=== PATIENT | female | born 1965 | race Caucasian/White ===

== ENCOUNTER 2017-07-07 05:07 | Inpatient (IN) | payer OTHER ==
[2017-07-06 09:16] VITALS: BMI 30.2
[~2017-07-07 05:07] MED LIST: BUPIVACAINE HCL/PF (5 MG/ML) 30 ML VIAL IJ ONE
[2017-07-07] MEDS ORDERED: THROMBIN (BOVINE) 20,000 UNIT VIAL TP ONE (07:37)
[2017-07-07] MEDS ORDERED: GENTAMICIN SO4 80 MG/2 ML VIAL ONE (07:37)
[2017-07-07] MEDS ORDERED: LIDOCAINE 1%/EPI 1:100000 (20 ML MULTI DOSE VIAL) ONE (07:37)
[2017-07-07] MEDS ORDERED: BUPIVACAINE HCL/PF 0.5% (5MG/ML) 10 ML VIAL ONE (07:38)
[2017-07-07] MEDS ORDERED: THROMBIN (BOVINE) 5,000 UNIT VIAL TP ONE (07:38)
[2017-07-07] MEDS ORDERED: VANCOMYCIN 1,000 MG VIAL (RESTRICTED TO ID ONLY) ONE ×2 (07:40→10:26)
--- NOTE | 2017-07-07 07:40 | HP ---
History & Physical Update - History History: No Change - Physical Physical: No Change - Assessment Assessment: No Change - Plan Plan: No Change (of note patient states she does not have DM, takes metformin likely for PCOS. NO changes in health/history since visit with Chris on 07/02/17 )
[2017-07-07 08:58] LABS: BASO % 1.2 % (0-2.0); EOS % 2.3 % (0-4.5); HEMATOCRIT 40.5 % (32.4-45.2); HEMOGLOBIN 12.8 GM/dL (10.7-15.3); LYMPH % 19.4 % (8-40); MCH 25.3 pg (25.7-33.7); MCHC 31.6 g/dl (32.0-36.0); MEAN PLT VOLUME 8.4 fl (7.5-11.1); MONO % 6.7 % (3.8-10.2); NEUT % 70.4 % (42.8-82.8); PLATELET COUNT 223 K/MM3 (134-434); RBC 5.07 M/mm3 (3.60-5.2); RDW 15.4 % (11.6-15.6); WHITE BLOOD COUNT 12.4 K/mm3 (4.0-10.0)
[2017-07-07] MEDS ORDERED: fentaNYL CITRATE 250 MCG/5 ML VIAL ONE (09:46)
[2017-07-07] MEDS ORDERED: MIDAZOLAM HCL 2 MG/2 ML SINGLE DOSE VIAL ONE (09:47)
[2017-07-07] MEDS ORDERED: ROCURONIUM BROMIDE 50 MG/5 ML VIAL ONE ×2 (09:47→11:39)
[2017-07-07] MEDS ORDERED: PROPOFOL 20 ML ONE ×2 (09:47→15:12)
[2017-07-07] MEDS ORDERED: LIDOCAINE HCL/PF 2% SDV 5ML VIAL ONE (09:48)
[2017-07-07] MEDS ORDERED: DEXAMETHASONE SOD PHOSPHATE 4 MG/1 ML VIAL IVPUSH ONE (09:56)
[2017-07-07] MEDS ORDERED: ONDANSETRON 4 MG/2 ML VIAL IVPUSH PRN (09:56)
[2017-07-07] MEDS ORDERED: LACTATED RINGERS SOLUTION 1,000 ML IV SCH (10:00)
[2017-07-07] MEDS ORDERED: SODIUM CHLORIDE 0.9% P/F 10 ML VIAL IJ ONE ×2 (10:25→10:45)
[2017-07-07] MEDS ORDERED: ceFAZolin SODIUM 1 GM VIAL ONE ×4 (10:26→21:08)
[2017-07-07] MEDS ORDERED: VANCOMYCIN 1,000 MG VIAL (RESTRICTED TO ID ONLY) IVPB ONE (10:27)
[2017-07-07] MEDS ORDERED: DESFLURANE GAS 240 ML BOTTLE IH ONE (10:36)
[2017-07-07] MEDS ORDERED: ceFAZolin SODIUM 1 GM VIAL IVPB ONE ×3 (10:44→14:45)
[2017-07-07] MEDS ORDERED: ePHEDrine SULFATE 50 MG/1 ML AMPULE ONE (10:45)
[2017-07-07] MEDS ORDERED: LIDOCAINE 1%/EPI 1:100000 (50 ML MULTI DOSE VIAL) INF ONE (10:48)
[2017-07-07] MEDS ORDERED: ONDANSETRON 4 MG/2 ML VIAL ONE ×2 (11:09→14:56)
[2017-07-07] MEDS ORDERED: DEXAMETHASONE SOD PHOSPHATE 4 MG/1 ML VIAL ONE (11:09)
[2017-07-07] MEDS ORDERED: BUPIVACAINE HCL/PF (5 MG/ML) 30 ML VIAL IJ ONE (14:45)
[2017-07-07] MEDS ORDERED: NEOSTIGMINE METHYLSULFATE 0.5 MG/ML - 10 ML MDV ONE (14:56)
[2017-07-07] MEDS ORDERED: GLYCOPYRROLATE 0.2 MG/1 ML VIAL ONE (14:56)
[2017-07-07] MEDS ORDERED: HYDROmorphone *PCA* 10MG/50ML DISP.SYRIN PCA ONE ×2 (15:46→16:00)
[2017-07-07] MEDS ORDERED: ACETAMINOPHEN 1000 MG/100 ML VIAL (NON FORMULARY) IVPB PRN (16:50)
[2017-07-07] MEDS ORDERED: ACETAMINOPHEN INJECTION 100 ML IVPB ONE (16:55)
[2017-07-07] MEDS ORDERED: diphenhydrAMINE HCL 25 MG CAPSULE (FP) PO PRN (17:07)
[2017-07-07] MEDS ORDERED: ALBUTEROL SO4 18 GM HFA INHALER IH PRN ×2 (17:08→17:21)
[2017-07-07] MEDS ORDERED: ACETAMINOPHEN 1000 MG/100 ML VIAL (NON FORMULARY) IVPB ONE (17:24)
--- NOTE | 2017-07-07 17:26 | OP ---
Operative Note - Note: Operative Date: 07/07/17 Pre-Operative Diagnosis: lumbar stenosis, radiculopathy and instability s/p lumbar fusion Operation: exploration of L4-L5 fusion with hardware removal and L2-L5 decompression (reoperative at L4-L5) with transpedicular approaches for interbody cage and arthrodeis and L2-L5 later fusion with pedicle screws. Post-Operative Diagnosis: Same as Pre-op Surgeon: Rich Garcia Concrete Rubber: Mary Ann Marshall Anesthesiologist/TANKAGE SUPERVISOR: Rich Prater Anesthesia: General Estimated Blood Loss (mls): 750 Drains & Tubes with Location: j/p right paravetebral lumbar spine Drains, Volume Out (mls): 150 (rojas) Fluid Volume Replaced (mls): 2,000 Operative Report Dictated: Yes
--- NOTE | 2017-07-07 17:28 | SURG ---
Surgery Bar Pilot Note Bar Pilot: Mary Ann Marshall PA-C Date of Service: 07/07/17 Diagnosis: lumbar stenosis, DDD, instability I was present for the entirety of the operative procedure. For further detail, please refer to operative report. Visit type - Case Type Case Type: Scheduled - Emergency Emergency Visit: No - New patient This patient is new to me today: Yes Date on this admission: 07/07/17
[2017-07-07] MEDS: HYDROmorphone *PCA* 10MG/50ML DISP.SYRIN PCA SCH (18:18)
[2017-07-07] MEDS: ACETAMINOPHEN 325 MG TABLET (FP) PO SCH ×2 (18:18→23:04)
[2017-07-07] MEDS: LACTATED RINGERS SOLUTION 1,000 ML IV SCH (18:18)
[2017-07-07] MEDS ORDERED: DEXTROSE 5%-WATER - 50 ML IVPB ONE (21:08)
[2017-07-07] MEDS ORDERED: INSULIN (NOVOLOG) ASPART 100 UNITS/ML 10ML VIAL ONE (21:19)
[2017-07-07] MEDS: ROSUVASTATIN CA 10 MG TABLET (FP) PO SCH (21:43)
[2017-07-07] MEDS: FERROUS SO4 325 MG TABLET (FP) PO SCH (21:44)
[2017-07-07] MEDS ORDERED: ROSUVASTATIN CA 10 MG TABLET (FP) PO SCH (22:00)
[2017-07-07] MEDS: CEFAZOLIN 1 GM in DEXTROSE 5%-WATER - 50 ML IVPB SCH (22:01)
[2017-07-08] MEDS ORDERED: ceFAZolin SODIUM 1 GM VIAL ONE ×3 (01:09→17:32)
[2017-07-08] MEDS ORDERED: DEXTROSE 5%-WATER - 50 ML IVPB ONE ×3 (01:10→17:33)
[2017-07-08] MEDS: CEFAZOLIN 1 GM in DEXTROSE 5%-WATER - 50 ML IVPB SCH ×3 (01:39→18:03)
[2017-07-08] MEDS: LACTATED RINGERS SOLUTION 1,000 ML IV SCH ×2 (05:34→17:19)
[2017-07-08] MEDS: HEPARIN NA (PORCINE) 5,000 UNITS/ML 1ML VIAL SQ SCH ×3 (05:35→21:36)
[2017-07-08] MEDS: ACETAMINOPHEN 325 MG TABLET (FP) PO SCH ×4 (06:33→23:08)
[2017-07-08] MEDS: metFORMIN HCL 500 MG TABLET (FP) PO SCH ×2 (06:33→18:03)
[2017-07-08 07:58] LABS: HEMATOCRIT 26.7 % (32.4-45.2); HEMOGLOBIN 8.7 GM/dL (10.7-15.3); MCH 26.4 pg (25.7-33.7); MCHC 32.7 g/dl (32.0-36.0); MEAN CELL VOLUME 80.8 fl (80-96); MEAN PLT VOLUME 8.4 fl (7.5-11.1); PLATELET COUNT 193 K/MM3 (134-434); RDW 15.8 % (11.6-15.6)
[2017-07-08 08:23] LABS: ANION GAP 5 (8-16); BLOOD UREA NITROGEN 15 mg/dL (7-18); CALCIUM 7.9 mg/dL (8.5-10.1); CHLORIDE 105 mmol/L (98-107); CO2 30 mmol/L (21-32); CREATININE 0.8 mg/dL (0.55-1.02); GLUCOSE,RANDOM 102 mg/dL (74-106); POTASSIUM 4.4 mmol/L (3.5-5.1); SODIUM 140 mmol/L (136-145)
--- NOTE | 2017-07-08 08:45 | CONSULT ---
Consult - History of Present Illness History of Present Illness: 51 y.o. woman POD#1 s/p lumbar hardware removal/fusion - Past Medical History Cardio/Vascular: Yes: HTN, Hyperlipdemia Pulmonary: Yes: Asthma, COPD. No: O2 Dependent ...LMP Comment: hysterectomy Endocrine: Yes: Diabetes Mellitus, Hypothyroidism - Past Surgical History Past Surgical History: Yes: Cholecystectomy - Alcohol/Substance Use Hx Alcohol Use: No - Smoking History Smoking history: Current every day smoker Have you smoked in the past 12 months: Yes Aproximately how many cigarettes per day: 6 - Social History History of Recent Travel: No Home Medications - Allergies Allergies/Adverse Reactions: Allergies Allergy/AdvReac Type Severity Reaction Status Date / Time No Known Allergies Allergy Verified 07/07/17 06:47 - Home Medications Home Medications: Ambulatory Orders Levothyroxine [Synthroid -] 88 mcg PO DAILY 06/18/14 metFORMIN HCL [Glucophage] 500 mg PO BID 06/18/14 Albuterol Sulfate Inhaler - [Ventolin HFA Inhaler -] 1 - 2 inh PO PRN PRN Ascorbic Acid [Vitamin C] 500 mg PO BID 07/06/17 Budesonide/Formeterol Fumarate [SYMBICORT 160/4.5mcg -] 2 inh IH DAILY 07/06/17 Cephalexin [Keflex] 500 mg PO BID 07/06/17 Ferrous Sulfate 325 mg PO BID 07/06/17 Folic Acid 1 mg PO DAILY 07/06/17 Liraglutide [Victoza -] 1.8 mg SQ DAILY@0700 07/06/17 Naproxen Sodium [Aleve] 220 mg PO PRN PRN 07/06/17 Rosuvastatin [Crestor -] 5 mg PO HS 07/06/17 Review of Systems - Review of Systems Cardiovascular: reports: Shortness of Breath. denies: Chest Pain Respiratory: reports: Cough, Wheezing Gastrointestinal: denies: Abdominal Pain Physical Exam Vital Signs: Vital Signs Temperature 98.9 F 07/08/17 07:00 Pulse Rate 87 07/08/17 07:00 Respiratory Rate 20 07/08/17 07:00 Blood Pressure 108/69 07/08/17 07:00 O2 Sat by Pulse Oximetry (%) 97 07/07/17 21:00 Cardiovascular: Yes: Regular Rate and Rhythm Respiratory: Yes: Rhonchi, Wheezes Gastrointestinal: Yes: Normal Bowel Sounds, Soft Labs: CBC, BMP 07/08/17 06:15 07/08/17 06:15 Problem List - Problems (1) Post-laminectomy syndrome Assessment/Plan: - PER NS -PAIN CONTROL Code(s): M96.1 - POSTLAMINECTOMY SYNDROME, NOT ELSEWHERE CLASSIFIED (2) Diabetes Assessment/Plan: -BGM -SAME MEDS Code(s): E11.9 - TYPE 2 DIABETES MELLITUS WITHOUT COMPLICATIONS Qualifiers: Diabetes mellitus type: type 2 Diabetes mellitus complication status: without complication (3) Hypothyroid Assessment/Plan: -SYNTHROID Code(s): E03.9 - HYPOTHYROIDISM, UNSPECIFIED (4) Leukocytosis Assessment/Plan: -CHRONIC -MONITOR Code(s): D72.829 - ELEVATED WHITE BLOOD CELL COUNT, UNSPECIFIED (5) COPD (chronic obstructive pulmonary disease) Assessment/Plan: -NEBS -PULM Code(s): J44.9 - CHRONIC OBSTRUCTIVE PULMONARY DISEASE, UNSPECIFIED
--- NOTE | 2017-07-08 10:02 | PN ---
Progress Note (short form) - Note Progress Note: Anesthesiology Post-op/Pain Service 51 y.o. woman POD#1 s/p lumbar hardware removal/fusion under GA. Pt. is awake and alert in NAD. She admits to pain and is using the OUTSIDE SALES ACCOUNT REPRESENTATIVE regularly. No n/v. No ON issues per RN. VSS. 51 y.o. s/p lumbar hardware removal/fusion wit post-op OUTSIDE SALES ACCOUNT REPRESENTATIVE and stable post- operative course. Continue OUTSIDE SALES ACCOUNT REPRESENTATIVE for now. I have encouraged incentive spirometry as well.
[2017-07-08] MEDS: HYDROmorphone *PCA* 10MG/50ML DISP.SYRIN PCA SCH (11:05)
[2017-07-08] MEDS: FERROUS SO4 325 MG TABLET (FP) PO SCH (11:06)
[2017-07-08] MEDS: FOLIC ACID 1 MG TABLET (FP) PO SCH (11:06)
[2017-07-08] MEDS: LEVOTHYROXINE NA 88 MCG TABLET (FP) PO SCH (11:07)
[2017-07-08] MEDS: ALBUTEROL SO4 2.5/IPRATROPIUM 0.5 INH SOL 3 ML VIAL.NEB. NEB SCH ×3 (12:55→20:35)
[2017-07-08] MEDS: ONDANSETRON 4 MG/2 ML VIAL IVPUSH PRN (13:05)
--- NOTE | 2017-07-08 13:51 | PN ---
Progress Note (short form) - Note Progress Note: PULMONARY CONSULTATION DICTATED 07/08/17 IMP ASTHMA STABLE S/P LUMBAR FUSION AND HARDWARE REMOVAL HTN HLD HYPOTHYROID ANEMIA SMOKER PLAN CONTINUE SYMBICORT INHALED BRONCHODILATORS PRN DVT PROPHYLAXIS ANALGESICS INCENTIVE SPIROMETER PFTS OUTPATIENT SMOKING CESSATION COUNSELED CHEST CT OUTPATIENT MONITOR H+H DR KENDALL Problem List - Problems (1) Asthma Code(s): J45.909 - UNSPECIFIED ASTHMA, UNCOMPLICATED (2) Post-laminectomy syndrome Code(s): M96.1 - POSTLAMINECTOMY SYNDROME, NOT ELSEWHERE CLASSIFIED (3) Anemia Code(s): D64.9 - ANEMIA, UNSPECIFIED Qualifiers: Anemia type: unspecified anemia type (4) Hypothyroid Code(s): E03.9 - HYPOTHYROIDISM, UNSPECIFIED (5) Tobacco abuse Code(s): Z72.0 - TOBACCO USE (6) Tobacco abuse counseling Code(s): Z71.6 - TOBACCO ABUSE COUNSELING (7) Tobacco abuse Code(s): Z72.0 - TOBACCO USE (8) Tobacco abuse counseling Code(s): Z71.6 - TOBACCO ABUSE COUNSELING
--- NOTE | 2017-07-08 14:25 | CONS ---
DATE OF CONSULTATION: 07/08/2017 REFERRING PHYSICIAN: Xiomara Perez MD The patient is a 51-year-old white female with a past medical history of asthma, hypothyroidism, history of cholecystectomy, history of tobacco use (smoked cigarettes a day), currently still smoking, in [facility] for lumbar hardware removal and fusion. Patient is postop day 1 status post procedure. Patient has history of asthma, currently maintained on Symbicort as well as albuterol p.r.n. She denies any history of respiratory failure in the past, ventilatory support or any hospitalizations for asthma. She denies any chronic cough or hemoptysis. Denies any chest tightness. Denies any history of occupational exposure to chemicals or fumes. There is no history of recent travel. PAST MEDICAL HISTORY: Again includes asthma, hypothyroidism, hypertension, hyperlipidemia. REVIEW OF SYSTEMS: Positive back pain. No shortness of breath, no chest pain, no palpitations, no cough, no hemoptysis, no bronchospasm. MEDICATIONS: Prior to admission include Synthroid, Glucophage, albuterol, Symbicort, Keflex, Feosol, ferrous sulfate, Naproxen and Crestor. PHYSICAL EXAMINATION: General: The patient is a well-developed, well-nourished female, awake, alert, in no acute distress. Vital signs: She is afebrile. Blood pressure is 94/50, respiratory rate is 20. HEENT: Normocephalic atraumatic. Neck: Supple. Heart: Regular. S1, S2. Chest: Clear. Abdomen: Soft. Bowel sounds positive. Extremities: No cyanosis or edema. LABORATORIES: WBC is 16, hemoglobin 8.7, hematocrit 26.7. BUN 15, creatinine 0.8. Chest x-ray is recent from May 2015: Previous fusion procedure, clear lungs, no acute pathology. IMPRESSION: 1. Asthma, clinically stable, not in acute exacerbation. 2. Status post L4-L5 fusion and hardware removal as well as L2-L5 decompression, re-operative at L4-L5. 3. Hypertension. 4. Hyperlipidemia. 5. Smoker. PLAN: Inhaled bronchodilators. Symbicort 160/4.5 two puffs b.i.d., inhaled bronchodilators p.r.n. Incentive spirometer. Continue DVT prophylaxis. CRICKET KENDALL M.D. TOM/[id number]
[2017-07-08] MEDS: LIRAGLUTIDE 0.6 MG/0.1 ML PEN.INJCTR SQ SCH ×2 (14:31→15:16)
[2017-07-08] MEDS: BUDESONIDE/FORMETEROL FUMARATE 160/4.5 mcg INHALER IH SCH (14:32)
[2017-07-08] MEDS: ROSUVASTATIN CA 10 MG TABLET (FP) PO SCH (21:36)
[2017-07-08] MEDS ORDERED: IBUPROFEN 800 MG/8 ML IJ IVPB PRN (22:11)
[2017-07-08] MEDS ORDERED: IBUPROFEN 800 MG/8 ML IJ IVPB ONE (22:11)
--- NOTE | 2017-07-08 22:19 | PN ---
Progress Note (short form) - Note Progress Note: Anesthesiologist note, Called by RN , pat does not want to use narcotics. C/o nausea. requesting alternative medication. Encourage to use Zofran prn as prescribed. Will add Caldolor prn in addition to existing tylenol order.Will follow up in the morning.
[2017-07-08] MEDS: PROMETHAZINE HCL 25 MG/1 ML VIAL IVPB PRN (22:37)
[2017-07-09] MEDS ORDERED: ceFAZolin SODIUM 1 GM VIAL ONE ×3 (01:41→16:51)
[2017-07-09] MEDS ORDERED: DEXTROSE 5%-WATER - 50 ML IVPB ONE ×3 (01:42→16:51)
[2017-07-09] MEDS: CEFAZOLIN 1 GM in DEXTROSE 5%-WATER - 50 ML IVPB SCH ×4 (02:26→19:49)
[2017-07-09] MEDS: LACTATED RINGERS SOLUTION 1,000 ML IV SCH (02:26)
[2017-07-09] MEDS: ACETAMINOPHEN 325 MG TABLET (FP) PO SCH (05:58)
[2017-07-09] MEDS: PROMETHAZINE HCL 25 MG/1 ML VIAL IVPB PRN (06:03)
[2017-07-09] MEDS: metFORMIN HCL 500 MG TABLET (FP) PO SCH ×2 (06:06→18:28)
[2017-07-09] MEDS: HEPARIN NA (PORCINE) 5,000 UNITS/ML 1ML VIAL SQ SCH ×3 (06:07→22:45)
[2017-07-09] MEDS: LEVOTHYROXINE NA 88 MCG TABLET (FP) PO SCH (06:58)
[2017-07-09] MEDS: LIRAGLUTIDE 0.6 MG/0.1 ML PEN.INJCTR SQ SCH (06:59)
[2017-07-09] MEDS: ALBUTEROL SO4 2.5/IPRATROPIUM 0.5 INH SOL 3 ML VIAL.NEB. NEB SCH ×4 (07:28→19:20)
[2017-07-09 07:47] LABS: BASO % 0.5 % (0-2.0); EOS % 1.2 % (0-4.5); HEMATOCRIT 23.4 % (32.4-45.2); HEMOGLOBIN 7.6 GM/dL (10.7-15.3); LYMPH % 13.7 % (8-40); MCH 26.3 pg (25.7-33.7); MCHC 32.4 g/dl (32.0-36.0); MEAN CELL VOLUME 81.2 fl (80-96); MEAN PLT VOLUME 8.8 fl (7.5-11.1); NEUT % 76.6 % (42.8-82.8); PLATELET COUNT 165 K/MM3 (134-434); RBC 2.88 M/mm3 (3.60-5.2); RDW 15.8 % (11.6-15.6); WHITE BLOOD COUNT 14.9 K/mm3 (4.0-10.0)
[2017-07-09 08:00] LABS: CHLORIDE 105 mmol/L (98-107); POTASSIUM 3.9 mmol/L (3.5-5.1); SODIUM 141 mmol/L (136-145)
[2017-07-09 08:15] LABS: ALBUMIN 2.7 g/dl (3.4-5.0); ALK PHOS 72 U/L (45-117); ANION GAP 6 (8-16); BILIRUBIN,TOTAL 0.5 mg/dL (0.2-1.0); BLOOD UREA NITROGEN 10 mg/dL (7-18); CALCIUM 7.9 mg/dL (8.5-10.1); CO2 30 mmol/L (21-32); CREATININE 0.7 mg/dL (0.55-1.02); GLUCOSE,RANDOM 110 mg/dL (74-106); SGOT/AST 42 U/L (15-37); SGPT/ALT 70 U/L (12-78); TOT PROT 4.9 g/dl (6.4-8.2)
--- NOTE | 2017-07-09 10:20 | PN ---
Progress Note (short form) - Note Progress Note: OOB to chair on RA. No CP or SOB. Asthma seems stable. About 1500 on IS. Intake & Output 07/06/17 07/07/17 07/08/17 07/09/17 23:59 23:59 23:59 23:59 Intake Total 2400 1075 Output Total 1495 2355 350 Balance 905 -1280 -350 Weight 155 lb Last Vital Signs Temp Pulse Resp BP Pulse Ox 99.8 F H 93 H 18 123/80 97 07/09/17 06:00 07/09/17 06:00 07/09/17 06:00 07/09/17 06:00 07/07/17 21:00 Active Medications Acetaminophen (Tylenol -) 650 mg PO Q6HPO [facility] Last Admin: 07/09/17 05:58 Dose: 650 mg Albuterol Sulfate (Ventolin Hfa Inhaler -) 2 puff IH Q4H PRN PRN Reason: ASTHMA Albuterol Sulfate (Ventolin Hfa Inhaler -) 1 puff IH Q4H PRN PRN Reason: ASTHMA Albuterol/Ipratropium (Duoneb -) 1 amp NEB RQID [facility] Last Admin: 07/09/17 07:28 Dose: 1 amp Budesonide/Formoterol Fumarate (Symbicort 160/4.5mcg -) 2 puff IH DAILY [facility] Last Admin: 07/08/17 14:32 Dose: 2 puff Diphenhydramine HCl (Benadryl Injection -) 12.5 mg IVPUSH ONCE PRN PRN Reason: FOR ITCHING Last Admin: 07/08/17 23:07 Dose: 12.5 mg Diphenhydramine HCl (Benadryl -) 25 mg PO Q6H PRN PRN Reason: FOR ITCHING Fentanyl (Sublimaze Injection -) 50 mcg IVPUSH [id number] PRN PRN Reason: PAIN-PACU ORDER X 4 DOSES ONLY Ferrous Sulfate (Feosol -) 325 mg PO DAILY [facility] Folic Acid (Folic Acid -) 1 mg PO DAILY [facility] Last Admin: 07/08/17 11:06 Dose: 1 mg Heparin Sodium (Porcine) (Heparin -) 5,000 unit SQ TID [facility] Last Admin: 07/09/17 06:07 Dose: 5,000 unit Hydromorphone HCl (Dilaudid Unix Systems Administrator -) 10 mg ACTIVE DIRECTORY ARCHITECT ACTIVE DIRECTORY ARCHITECT DANIELLE PRN Reason: Protocol Stop: 07/14/17 09:56 Last Admin: 07/08/17 11:05 Dose: Not Given Lactated Ringer's (Lactated Ringers Solution) 1,000 mls @ 125 mls/hr IV ASDIR [facility] Last Admin: 07/09/17 02:26 Dose: 125 mls/hr Cefazolin Sodium 1 gm/ (Dextrose) 50 mls @ 100 mls/hr IVPB Q8H-IV [facility] Last Admin: 07/09/17 02:26 Dose: 100 mls/hr Ibuprofen (Caldolor Injection -) 800 mg IVPB Q8H PRN PRN Reason: FEVER Last Admin: 07/09/17 06:05 Dose: 800 mg Levothyroxine Sodium (Synthroid -) 88 mcg PO DAILY@0700 [facility] Last Admin: 07/09/17 06:58 Dose: 88 mcg Liraglutide (Victoza -) 1.8 mg SQ DAILY@0700 [facility] Last Admin: 07/09/17 06:59 Dose: Not Given Metformin HCl (Glucophage -) 500 mg PO BIDAC [facility] Last Admin: 07/09/17 06:06 Dose: 500 mg Ondansetron HCl (Zofran Injection) 4 mg IVPUSH Q6H PRN PRN Reason: NAUSEA AND/OR VOMITING Last Admin: 07/08/17 13:05 Dose: 4 mg Promethazine HCl (Phenergan Injection -) 12.5 mg IVPB Q6H PRN PRN Reason: NAUSEA AND/OR VOMITING Last Admin: 07/09/17 06:03 Dose: 12.5 mg Rosuvastatin Calcium (Crestor -) 5 mg PO HS [facility] Last Admin: 07/08/17 21:36 Dose: 5 mg Gen: NAD Cardiovascular: Yes: Regular Rate and Rhythm Respiratory: Yes: Clear, No Wheezes Gastrointestinal: Yes: Normal Bowel Sounds, Soft Neuro: Non-focal Laboratory Results - last 24 hr 07/09/17 07/09/17 07/09/17 06:15 06:15 06:15 WBC 14.9 H RBC 2.88 L Hgb 7.6 L D Hct 23.4 L MCV 81.2 MCH 26.3 MCHC 32.4 RDW 15.8 H Plt Count 165 MPV 8.8 Neutrophils % 76.6 Lymphocytes % 13.7 D Monocytes % 8.0 Eosinophils % 1.2 Basophils % 0.5 Sodium 141 Potassium 3.9 Chloride 105 Carbon Dioxide 30 Anion Gap 6 L BUN 10 Creatinine 0.7 Creat Clearance w eGFR > 60 Random Glucose 110 H Hemoglobin A1c % 5.3 Calcium 7.9 L Total Bilirubin 0.5 D AST 42 H ALT 70 Alkaline Phosphatase 72 Total Protein 4.9 L Albumin 2.7 L Problem List - Problems (1) Asthma Code(s): J45.909 - UNSPECIFIED ASTHMA, UNCOMPLICATED (2) Post-laminectomy syndrome Code(s): M96.1 - POSTLAMINECTOMY SYNDROME, NOT ELSEWHERE CLASSIFIED (3) Anemia Code(s): D64.9 - ANEMIA, UNSPECIFIED Qualifiers: Anemia type: unspecified anemia type (4) Hypothyroid Code(s): E03.9 - HYPOTHYROIDISM, UNSPECIFIED (5) Tobacco abuse Code(s): Z72.0 - TOBACCO USE (6) Tobacco abuse counseling Code(s): Z71.6 - TOBACCO ABUSE COUNSELING (7) Tobacco abuse Code(s): Z72.0 - TOBACCO USE (8) Tobacco abuse counseling Code(s): Z71.6 - TOBACCO ABUSE COUNSELING IMP ASTHMA STABLE S/P LUMBAR FUSION AND HARDWARE REMOVAL HTN HLD HYPOTHYROID ANEMIA SMOKER PLAN SYMBICORT INHALED BRONCHODILATORS PRN DVT PROPHYLAXIS ANALGESICS INCENTIVE SPIROMETER PFTS OUTPATIENT SMOKING CESSATION COUNSELED WILL NEED CHEST CT FOLLOW AN OUTPATIENT: (?) ILD Dr Knight
[2017-07-09] MEDS ORDERED: ACETAMINOPHEN 325 MG TABLET (FP) PO PRN ×2 (10:47→11:00)
[2017-07-09] MEDS: FOLIC ACID 1 MG TABLET (FP) PO SCH (10:54)
[2017-07-09] MEDS: FERROUS SO4 325 MG TABLET (FP) PO SCH (10:54)
[2017-07-09] MEDS: HYDROmorphone *PCA* 10MG/50ML DISP.SYRIN PCA SCH (10:55)
--- NOTE | 2017-07-09 10:57 | PN ---
Progress Note, Physician Chief Complaint: patient doesnot want LINE PREP COOK h/h noted will repeat - Current Medication List Current Medications: Active Medications Acetaminophen (Tylenol -) 650 mg PO Q6HPO PRN PRN Reason: PAIN OR FEVER Albuterol Sulfate (Ventolin Hfa Inhaler -) 2 puff IH Q4H PRN PRN Reason: ASTHMA Albuterol Sulfate (Ventolin Hfa Inhaler -) 1 puff IH Q4H PRN PRN Reason: ASTHMA Albuterol/Ipratropium (Duoneb -) 1 amp NEB RQID [facility] Last Admin: 07/09/17 07:28 Dose: 1 amp Budesonide/Formoterol Fumarate (Symbicort 160/4.5mcg -) 2 puff IH DAILY [facility] Last Admin: 07/08/17 14:32 Dose: 2 puff Diphenhydramine HCl (Benadryl Injection -) 12.5 mg IVPUSH ONCE PRN PRN Reason: FOR ITCHING Last Admin: 07/08/17 23:07 Dose: 12.5 mg Diphenhydramine HCl (Benadryl -) 25 mg PO Q6H PRN PRN Reason: FOR ITCHING Ferrous Sulfate (Feosol -) 325 mg PO DAILY [facility] Folic Acid (Folic Acid -) 1 mg PO DAILY [facility] Last Admin: 07/08/17 11:06 Dose: 1 mg Heparin Sodium (Porcine) (Heparin -) 5,000 unit SQ TID [facility] Last Admin: 07/09/17 06:07 Dose: 5,000 unit Cefazolin Sodium 1 gm/ (Dextrose) 50 mls @ 100 mls/hr IVPB Q8H-IV [facility] Last Admin: 07/09/17 02:26 Dose: 100 mls/hr Levothyroxine Sodium (Synthroid -) 88 mcg PO DAILY@0700 [facility] Last Admin: 07/09/17 06:58 Dose: 88 mcg Liraglutide (Victoza -) 1.8 mg SQ DAILY@0700 [facility] Last Admin: 07/09/17 06:59 Dose: Not Given Metformin HCl (Glucophage -) 500 mg PO BIDAC [facility] Last Admin: 07/09/17 06:06 Dose: 500 mg Ondansetron HCl (Zofran Injection) 4 mg IVPUSH Q6H PRN PRN Reason: NAUSEA AND/OR VOMITING Last Admin: 07/08/17 13:05 Dose: 4 mg Promethazine HCl (Phenergan Injection -) 12.5 mg IVPB Q6H PRN PRN Reason: NAUSEA AND/OR VOMITING Last Admin: 07/09/17 06:03 Dose: 12.5 mg Rosuvastatin Calcium (Crestor -) 5 mg PO HS [facility] Last Admin: 07/08/17 21:36 Dose: 5 mg Tramadol HCl (Ultram -) 50 mg PO Q8H PRN PRN Reason: PAIN LEVEL 7 - 10 - Objective Vital Signs: Vital Signs Temperature 99.8 F H 07/09/17 06:00 Pulse Rate 93 H 07/09/17 06:00 Respiratory Rate 18 07/09/17 06:00 Blood Pressure 123/80 07/09/17 06:00 O2 Sat by Pulse Oximetry (%) 97 07/07/17 21:00 Constitutional: Yes: Calm Neck: Yes: Trachea Midline Cardiovascular: Yes: Regular Rate and Rhythm, S1, S2 Respiratory: Yes: CTA Bilaterally Gastrointestinal: Yes: Normal Bowel Sounds, Soft Edema: No Labs: CBC, BMP 07/09/17 06:15 07/09/17 06:15 Problem List - Problems (1) Post-laminectomy syndrome Assessment/Plan: Procedure: exploration of L4-L5 fusion with hardware removal and L2-L5 decompression (reoperative at L4-L5) with transpedicular approaches for interbody cage and arthrodeis and L2-L5 later fusion with pedicle screws. not using road conductor pump will stop motrin and try tramadol with tylenol back brace dvt ppx Code(s): M96.1 - POSTLAMINECTOMY SYNDROME, NOT ELSEWHERE CLASSIFIED (2) Acute anemia Assessment/Plan: s/p back surgery stop ivf- maybe dilutional recheck cbc again if still < 8 then will give one unit prbc iron panel Code(s): D64.9 - ANEMIA, UNSPECIFIED (3) Hypothyroid Assessment/Plan: synthroid tsh Code(s): E03.9 - HYPOTHYROIDISM, UNSPECIFIED (4) Asthma Assessment/Plan: outpatient PFT and FU of chest CT ?? ILD smoking cessation symbicort Code(s): J45.909 - UNSPECIFIED ASTHMA, UNCOMPLICATED (5) Diabetes Assessment/Plan: same meds Code(s): E11.9 - TYPE 2 DIABETES MELLITUS WITHOUT COMPLICATIONS Qualifiers: Diabetes mellitus type: type 2 Diabetes mellitus complication status: without complication
[2017-07-09] MEDS: BUDESONIDE/FORMETEROL FUMARATE 160/4.5 mcg INHALER IH SCH (11:14)
[2017-07-09 11:34] LABS: BASO % 0.4 % (0-2.0); EOS % 2.2 % (0-4.5); HEMATOCRIT 22.7 % (32.4-45.2); HEMOGLOBIN 7.4 GM/dL (10.7-15.3); LYMPH % 15.9 % (8-40); MCH 26.3 pg (25.7-33.7); MCHC 32.4 g/dl (32.0-36.0); MEAN CELL VOLUME 81.1 fl (80-96); MEAN PLT VOLUME 8.4 fl (7.5-11.1); MONO % 7.3 % (3.8-10.2); NEUT % 74.2 % (42.8-82.8); PLATELET COUNT 174 K/MM3 (134-434); RDW 15.8 % (11.6-15.6); WHITE BLOOD COUNT 14.7 K/mm3 (4.0-10.0)
[2017-07-09] MEDS: ONDANSETRON 4 MG/2 ML VIAL IVPUSH PRN (12:18)
--- NOTE | 2017-07-09 13:21 | PN ---
Progress Note (short form) - Note Progress Note: POD #2 - s/p L2-5 removal of hardware/fusion under GA with PUMP HOUSE TECHNICIAN for postop pain management. VSS. Pt. doing well, sitting up comfortably in chair. PUMP HOUSE TECHNICIAN discontinued earlier today. Good pain control currently. Pain meds as per sx. Reconsult if needed.
[2017-07-09] MEDS: traMADol HCL 50 MG TABLET PO PRN ×2 (15:11→22:44)
--- NOTE | 2017-07-09 16:42 | PROC ---
Procedure Note Procedure: J/P drain pulled form right paravetebral lumbar spine with tip fully intact, the drain site was clean and dry and a pressure dressing was applied. The patient tolerated the procedure well. Her incision at the midline is c/d/i with marycarmen insitu no evidence tracking erythema, collection or d/c. surrounding tissue intact. Clean dressing applied
[2017-07-09] MEDS: ACETAMINOPHEN 325 MG TABLET (FP) PO PRN ×2 (18:30→22:43)
[2017-07-09] MEDS: ROSUVASTATIN CA 10 MG TABLET (FP) PO SCH (22:45)
[2017-07-10] MEDS ORDERED: ceFAZolin SODIUM 1 GM VIAL ONE ×2 (00:32→11:44)
[2017-07-10] MEDS ORDERED: DEXTROSE 5%-WATER - 50 ML IVPB ONE ×2 (00:32→11:44)
[2017-07-10] MEDS: CEFAZOLIN 1 GM in DEXTROSE 5%-WATER - 50 ML IVPB SCH ×2 (05:25→11:48)
[2017-07-10 06:06] LABS: SERUM IRON SATURATION 7 % (15-55); TOTAL IRON BINDING CAPACITY 218 ug/dL (250-450); UIBC 203 ug/dL (131-425)
[2017-07-10] MEDS: metFORMIN HCL 500 MG TABLET (FP) PO SCH ×2 (06:06→17:53)
[2017-07-10] MEDS: HEPARIN NA (PORCINE) 5,000 UNITS/ML 1ML VIAL SQ SCH ×3 (06:06→21:50)
[2017-07-10] MEDS: ACETAMINOPHEN 325 MG TABLET (FP) PO PRN ×2 (06:07→17:53)
[2017-07-10] MEDS: traMADol HCL 50 MG TABLET PO PRN ×2 (06:07→22:33)
[2017-07-10] MEDS: LEVOTHYROXINE NA 88 MCG TABLET (FP) PO SCH (06:09)
[2017-07-10] MEDS: ALBUTEROL SO4 2.5/IPRATROPIUM 0.5 INH SOL 3 ML VIAL.NEB. NEB SCH ×4 (07:35→20:55)
[2017-07-10] MEDS: LIRAGLUTIDE 0.6 MG/0.1 ML PEN.INJCTR SQ SCH (07:45)
--- NOTE | 2017-07-10 09:08 | PN ---
Progress Note, Physician - Current Medication List Current Medications: Active Medications Acetaminophen (Tylenol -) 650 mg PO Q6H PRN PRN Reason: FEVER Last Admin: 07/10/17 06:07 Dose: 650 mg Acetaminophen (Tylenol -) 650 mg PO Q6HPO PRN PRN Reason: PAIN LEVEL 4 - 6 Albuterol Sulfate (Ventolin Hfa Inhaler -) 2 puff IH Q4H PRN PRN Reason: ASTHMA Albuterol Sulfate (Ventolin Hfa Inhaler -) 1 puff IH Q4H PRN PRN Reason: ASTHMA Albuterol/Ipratropium (Duoneb -) 1 amp NEB RQID [facility] Last Admin: 07/10/17 07:35 Dose: 1 amp Budesonide/Formoterol Fumarate (Symbicort 160/4.5mcg -) 2 puff IH DAILY [facility] Last Admin: 07/09/17 11:14 Dose: 2 puff Diphenhydramine HCl (Benadryl Injection -) 12.5 mg IVPUSH ONCE PRN PRN Reason: FOR ITCHING Last Admin: 07/08/17 23:07 Dose: 12.5 mg Diphenhydramine HCl (Benadryl -) 25 mg PO Q6H PRN PRN Reason: FOR ITCHING Last Admin: 07/09/17 22:44 Dose: 25 mg Ferrous Sulfate (Feosol -) 325 mg PO DAILY [facility] Last Admin: 07/09/17 10:54 Dose: 325 mg Folic Acid (Folic Acid -) 1 mg PO DAILY [facility] Last Admin: 07/09/17 10:54 Dose: 1 mg Heparin Sodium (Porcine) (Heparin -) 5,000 unit SQ TID [facility] Last Admin: 07/10/17 06:06 Dose: 5,000 unit Cefazolin Sodium 1 gm/ (Dextrose) 50 mls @ 100 mls/hr IVPB Q8H-IV [facility] Last Admin: 07/10/17 05:25 Dose: Not Given Levothyroxine Sodium (Synthroid -) 88 mcg PO DAILY@0700 [facility] Last Admin: 07/10/17 06:09 Dose: 88 mcg Liraglutide (Victoza -) 1.8 mg SQ DAILY@0700 [facility] Last Admin: 07/10/17 07:45 Dose: Not Given Metformin HCl (Glucophage -) 500 mg PO BIDAC [facility] Last Admin: 07/10/17 06:06 Dose: 500 mg Ondansetron HCl (Zofran Injection) 4 mg IVPUSH Q6H PRN PRN Reason: NAUSEA AND/OR VOMITING Last Admin: 07/09/17 12:18 Dose: 4 mg Promethazine HCl (Phenergan Injection -) 12.5 mg IVPB Q6H PRN PRN Reason: NAUSEA AND/OR VOMITING Last Admin: 07/09/17 06:03 Dose: 12.5 mg Rosuvastatin Calcium (Crestor -) 5 mg PO HS [facility] Last Admin: 07/09/17 22:45 Dose: 5 mg Tramadol HCl (Ultram -) 50 mg PO Q8H PRN PRN Reason: PAIN LEVEL 7 - 10 Last Admin: 07/10/17 06:07 Dose: 50 mg - Objective Vital Signs: Vital Signs Temperature 98 F 07/10/17 06:00 Pulse Rate 92 H 07/10/17 06:00 Respiratory Rate 20 07/10/17 06:00 Blood Pressure 116/72 07/10/17 06:00 O2 Sat by Pulse Oximetry (%) 97 07/07/17 21:00 Cardiovascular: Yes: S1, S2 Respiratory: Yes: Rhonchi Gastrointestinal: Yes: Normal Bowel Sounds, Soft Edema: No Wound/Incision: Yes: Other (rt le--abrasion) Labs: CBC, BMP 07/09/17 11:25 07/09/17 06:15 Problem List - Problems (1) Post-laminectomy syndrome Code(s): M96.1 - POSTLAMINECTOMY SYNDROME, NOT ELSEWHERE CLASSIFIED (2) Diabetes Code(s): E11.9 - TYPE 2 DIABETES MELLITUS WITHOUT COMPLICATIONS Qualifiers: Diabetes mellitus type: type 2 Diabetes mellitus complication status: without complication (3) Hypothyroid Code(s): E03.9 - HYPOTHYROIDISM, UNSPECIFIED (4) Leukocytosis Code(s): D72.829 - ELEVATED WHITE BLOOD CELL COUNT, UNSPECIFIED (5) COPD (chronic obstructive pulmonary disease) Code(s): J44.9 - CHRONIC OBSTRUCTIVE PULMONARY DISEASE, UNSPECIFIED Assessment/Plan - Problems (1) Post-laminectomy syndrome Assessment/Plan: Procedure: exploration of L4-L5 fusion with hardware removal and L2-L5 decompression (reoperative at L4-L5) with transpedicular approaches for interbody cage and arthrodeis and L2-L5 later fusion with pedicle screws. not using card mounter pump off motrin and on tramadol with tylenol back brace dvt ppx Code(s): M96.1 - POSTLAMINECTOMY SYNDROME, NOT ELSEWHERE CLASSIFIED (2) Acute anemia Assessment/Plan: s/p back surgery stop ivf- rpt low recheck cbc again if still < 8 then will give one unit prbc iron panel Code(s): D64.9 - ANEMIA, UNSPECIFIED (3) Hypothyroid Assessment/Plan: synthroid tsh Code(s): E03.9 - HYPOTHYROIDISM, UNSPECIFIED (4) Asthma Assessment/Plan: outpatient PFT and FU of chest CT ?? ILD smoking cessation symbicort Code(s): J45.909 - UNSPECIFIED ASTHMA, UNCOMPLICATED (5) Diabetes Assessment/Plan: same meds Code(s): E11.9 - TYPE 2 DIABETES MELLITUS WITHOUT COMPLICATIONS Qualifiers: Diabetes mellitus type: type 2 Diabetes mellitus complication status: without complication (6) Leukocytosis Assessment/Plan: -chronic--rising -follow -id consult (7) LE Abrasion Assessment/Plan: -bacitracin
--- NOTE | 2017-07-10 09:17 | PN ---
Progress Note (short form) - Note Progress Note: PULMONARY WANTS TO GO HOME DENIES SOB/COUGH/WHEEZE VSS/AFEBRILE ANICTERIC CHEST CLEAR S1S2 BS+ NO EDEMA LABS/MEDS/NOTES/IMAGES REVIEWED IMP ASTHMA STABLE S/P LUMBAR FUSION AND HARDWARE REMOVAL HTN HLD HYPOTHYROID ANEMIA SMOKER PLAN CONTINUE SYMBICORT INHALED BRONCHODILATORS PRN DVT PROPHYLAXIS ANALGESICS INCENTIVE SPIROMETER PFTS OUTPATIENT SMOKING CESSATION COUNSELED CHEST CT OUTPATIENT MONITOR H+H NO OBJECTION TO CONTINUING CARE AN OUTPATIENT. Nathaly SMITH MD
[2017-07-10 09:28] LABS: BASO % 0.3 % (0-2.0); EOS % 1.9 % (0-4.5); HEMATOCRIT 22.7 % (32.4-45.2); HEMOGLOBIN 7.4 GM/dL (10.7-15.3); LYMPH % 13.1 % (8-40); MCH 26.2 pg (25.7-33.7); MCHC 32.5 g/dl (32.0-36.0); MEAN CELL VOLUME 80.5 fl (80-96); MEAN PLT VOLUME 8.4 fl (7.5-11.1); MONO % 6.9 % (3.8-10.2); NEUT % 77.8 % (42.8-82.8); PLATELET COUNT 196 K/MM3 (134-434); RBC 2.82 M/mm3 (3.60-5.2); RDW 15.8 % (11.6-15.6); WHITE BLOOD COUNT 16.8 K/mm3 (4.0-10.0)
[2017-07-10] MEDS ORDERED: BACITRACIN 15 GM TUBE TOPICAL OINTMENT TP SCH (10:00)
[2017-07-10] MEDS: FERROUS SO4 325 MG TABLET (FP) PO SCH (10:31)
[2017-07-10] MEDS: FOLIC ACID 1 MG TABLET (FP) PO SCH (10:31)
[2017-07-10] MEDS: BUDESONIDE/FORMETEROL FUMARATE 160/4.5 mcg INHALER IH SCH (10:32)
--- NOTE | 2017-07-10 13:26 | PN ---
Progress Note (short form) - Note Progress Note: ID Full note dictated Post op temp but temp down now still on post op Cefazolin Selected Entries 07/10/17 06:00 Temperature 98 F Pulse Rate 92 H Respiratory 20 Rate Blood Pressure 116/[address] Boateng drain out clean wound Laboratory Tests 07/09/17 07/09/17 07/10/17 06:15 11:25 08:45 WBC 16.8 H RBC 2.82 L Hct 22.7 L Plt Count 196 BUN 10 Creatinine 0.7 Iron 15 L TIBC 218 L Assessment Day 2 post op spinal surgery Post op fever Looks well Leukocytosis chronic has seen Dr Brooks in past Anemia Plan STOP CEFAZOLIN TRANSFUSE PRBC DISCHARGE Isra ALMENDAREZ Problem List - Problems (1) Status post laminectomy with spinal fusion Code(s): Z98.1 - ARTHRODESIS STATUS (2) Postoperative fever Code(s): R50.82 - POSTPROCEDURAL FEVER (3) Leukocytosis Code(s): D72.829 - ELEVATED WHITE BLOOD CELL COUNT, UNSPECIFIED
--- NOTE | 2017-07-10 14:08 | CONS ---
DATE OF CONSULTATION: DATE OF DICTATION: 07/10/2017 HISTORY OF PRESENT ILLNESS: This is a 51-year-old female who I am asked to see postop spinal surgery for evaluation of fever and antibiotic management. The patient was electively admitted now for spinal surgery with hardware removal and fusion laminectomy. She is a known hypertensive with asthma, COPD, hyperlipidemia, O2 dependent and still continues to smoke. She is also diabetic and has a history of hypothyroidism and a prior cholecystectomy. She was admitted on July 07 and on that day underwent surgery with Dr. Laguerre. This included exploration of L4-L5 fusion with hardware removal, L2-L5 decompression and a transpedicular approach for interbody cage and arthrodesis and L2-L5 fusion with pedicle screws. The patient has been seen postoperatively by the pulmonary service because of her history of oxygen-dependent COPD. She is now day 3 postoperative and on the 1st postoperative day was noted to have temperature to 101.7. She has been afebrile since then and is apparently currently feeling well. She denies any cough, shortness of breath, abdominal pain or urinary complaints. She is fully ambulatory, dressed and states she is ready to go home. CURRENT MEDICATIONS: Include Symbicort, heparin, Ventolin, Duo-Neb, Glucophage, Crestor, Victoza, iron, Ultram, folic acid. ALLERGIES: None known. SOCIAL HISTORY: HIV status negative. Positive long-term smoker. No history of substance abuse. FAMILY HISTORY: Noncontributory. REVIEW OF SYSTEMS:Respiratory: No cough, shortness of breath. Cardiac: No chest pain, palpitations, syncope. Gastrointestinal: No abdominal pain, nausea, vomiting, diarrhea. Genitourinary: No dysuria, hematuria, urinary frequency. PHYSICAL EXAMINATION:General: Revealed a [id number] woman in no acute distress. Vital Signs: Temperature was 98, pulse 92, blood pressure 116/72, respirations 20. Neck: Supple. Lungs: Clear to P & A. Heart: S1, S2, regular rhythm without audible murmur. Abdomen: Soft, nontender without hepatosplenomegaly. Extremities: No clubbing, cyanosis or edema. LABORATORY DATA: The white count is 16.8, hemoglobin 7.4, hematocrit 22.7, platelets of 196. BUN 10, creatinine 0.7. Liver enzymes within normal limits. ASSESSMENT: A 51-year-old female day 3 postoperative extensive spinal surgery. Postoperative fever has resolved. She is still on cefazolin now day 3 of treatment. She has a leukocytosis, but according to the patient this has been chronic and she has been seen by Dr. Brooks in the past for evaluation. She is unaware of any diagnosis of myeloproliferative disorder. At this point she looks well and as per Surgery her spinal incision looks clean with no erythema, drainage and the drain has been removed. RECOMMENDATIONS: I would observe her off of antibiotics. The patient states she is scheduled to get a blood transfusion prior to discharge and from the ID standpoint nothing further to do at this time. MAXIMILIAN THORPE M.D. ERIC/[id number]
[2017-07-10] MEDS: BACITRACIN 15 GM TUBE TOPICAL OINTMENT TP SCH (21:49)
[2017-07-10] MEDS: ROSUVASTATIN CA 10 MG TABLET (FP) PO SCH (21:50)
[2017-07-11] MEDS: ACETAMINOPHEN 325 MG TABLET (FP) PO PRN ×2 (01:21→22:09)
[2017-07-11] MEDS ORDERED: PT OWN MED DRAWER 7, Y5N ONE ×2 (05:53→09:17)
[2017-07-11] MEDS: metFORMIN HCL 500 MG TABLET (FP) PO SCH ×2 (06:16→16:40)
[2017-07-11] MEDS: LEVOTHYROXINE NA 88 MCG TABLET (FP) PO SCH (06:16)
[2017-07-11] MEDS: LIRAGLUTIDE 0.6 MG/0.1 ML PEN.INJCTR SQ SCH (06:21)
[2017-07-11] MEDS: HEPARIN NA (PORCINE) 5,000 UNITS/ML 1ML VIAL SQ SCH ×3 (06:24→21:32)
[2017-07-11] MEDS: ALBUTEROL SO4 2.5/IPRATROPIUM 0.5 INH SOL 3 ML VIAL.NEB. NEB SCH ×4 (07:44→20:15)
--- NOTE | 2017-07-11 09:08 | PN ---
Progress Note, Physician History of Present Illness: 51 y.o. woman POD#1 s/p lumbar hardware removal/fusion - Current Medication List Current Medications: Active Medications Acetaminophen (Tylenol -) 650 mg PO Q6H PRN PRN Reason: FEVER Last Admin: 07/11/17 01:21 Dose: 650 mg Acetaminophen (Tylenol -) 650 mg PO Q6HPO PRN PRN Reason: PAIN LEVEL 4 - 6 Albuterol Sulfate (Ventolin Hfa Inhaler -) 2 puff IH Q4H PRN PRN Reason: ASTHMA Albuterol Sulfate (Ventolin Hfa Inhaler -) 1 puff IH Q4H PRN PRN Reason: ASTHMA Albuterol/Ipratropium (Duoneb -) 1 amp NEB RQID [facility] Last Admin: 07/11/17 07:44 Dose: 1 amp Bacitracin (Bacitracin -) 1 applic TP BID [facility] Last Admin: 07/10/17 21:49 Dose: 1 applic Budesonide/Formoterol Fumarate (Symbicort 160/4.5mcg -) 2 puff IH DAILY [facility] Last Admin: 07/10/17 10:32 Dose: 2 puff Diphenhydramine HCl (Benadryl Injection -) 12.5 mg IVPUSH ONCE PRN PRN Reason: FOR ITCHING Last Admin: 07/08/17 23:07 Dose: 12.5 mg Diphenhydramine HCl (Benadryl -) 25 mg PO Q6H PRN PRN Reason: FOR ITCHING Last Admin: 07/09/17 22:44 Dose: 25 mg Ferrous Sulfate (Feosol -) 325 mg PO DAILY [facility] Last Admin: 07/10/17 10:31 Dose: 325 mg Folic Acid (Folic Acid -) 1 mg PO DAILY [facility] Last Admin: 07/10/17 10:31 Dose: 1 mg Heparin Sodium (Porcine) (Heparin -) 5,000 unit SQ TID [facility] Last Admin: 07/11/17 06:24 Dose: 5,000 unit Levothyroxine Sodium (Synthroid -) 88 mcg PO DAILY@0700 [facility] Last Admin: 07/11/17 06:16 Dose: 88 mcg Liraglutide (Victoza -) 1.8 mg SQ DAILY@0700 [facility] Last Admin: 07/11/17 06:21 Dose: Not Given Metformin HCl (Glucophage -) 500 mg PO BIDAC [facility] Last Admin: 07/11/17 06:16 Dose: 500 mg Ondansetron HCl (Zofran Injection) 4 mg IVPUSH Q6H PRN PRN Reason: NAUSEA AND/OR VOMITING Last Admin: 07/09/17 12:18 Dose: 4 mg Promethazine HCl (Phenergan Injection -) 12.5 mg IVPB Q6H PRN PRN Reason: NAUSEA AND/OR VOMITING Last Admin: 07/09/17 06:03 Dose: 12.5 mg Rosuvastatin Calcium (Crestor -) 5 mg PO HS [facility] Last Admin: 07/10/17 21:50 Dose: 5 mg Tramadol HCl (Ultram -) 50 mg PO Q8H PRN PRN Reason: PAIN LEVEL 7 - 10 Last Admin: 07/10/17 22:33 Dose: 50 mg - Objective Vital Signs: Vital Signs Temperature 99.7 F H 07/11/17 06:00 Pulse Rate 81 07/11/17 06:00 Respiratory Rate 18 07/11/17 06:00 Blood Pressure 126/47 07/11/17 06:00 O2 Sat by Pulse Oximetry (%) 91 L 07/10/17 21:00 Cardiovascular: Yes: S1, S2 Respiratory: Yes: Regular, CTA Bilaterally Gastrointestinal: Yes: Normal Bowel Sounds, Soft Edema: No Wound/Incision: Yes: Dressing Removed (NO DRINAGE NO ERYTHEMA) Labs: CBC, BMP 07/10/17 08:45 07/09/17 06:15 Problem List - Problems (1) Post-laminectomy syndrome Assessment/Plan: - PER NS -PAIN CONTROL Code(s): M96.1 - POSTLAMINECTOMY SYNDROME, NOT ELSEWHERE CLASSIFIED (2) Diabetes Assessment/Plan: -BGM -SAME MEDS Code(s): E11.9 - TYPE 2 DIABETES MELLITUS WITHOUT COMPLICATIONS Qualifiers: Diabetes mellitus type: type 2 Diabetes mellitus complication status: without complication (3) Hypothyroid Assessment/Plan: -SYNTHROID Code(s): E03.9 - HYPOTHYROIDISM, UNSPECIFIED (4) Leukocytosis Assessment/Plan: -CHRONIC -MONITOR Code(s): D72.829 - ELEVATED WHITE BLOOD CELL COUNT, UNSPECIFIED (5) COPD (chronic obstructive pulmonary disease) Assessment/Plan: -NEBS -PULM Code(s): J44.9 - CHRONIC OBSTRUCTIVE PULMONARY DISEASE, UNSPECIFIED (6) Fever Assessment/Plan: BC CBCD ID FOLLOW UP Code(s): R50.9 - FEVER, UNSPECIFIED (7) Acute anemia Assessment/Plan: S/P PRBC FOLLOW CBC Code(s): D64.9 - ANEMIA, UNSPECIFIED
[2017-07-11 09:25] LABS: BASO % 0.5 % (0-2.0); EOS % 3.2 % (0-4.5); HEMATOCRIT 27.7 % (32.4-45.2); HEMOGLOBIN 9.1 GM/dL (10.7-15.3); LYMPH % 13.3 % (8-40); MCH 26.7 pg (25.7-33.7); MCHC 32.7 g/dl (32.0-36.0); MEAN CELL VOLUME 81.7 fl (80-96); MEAN PLT VOLUME 8.2 fl (7.5-11.1); MONO % 5.6 % (3.8-10.2); NEUT % 77.4 % (42.8-82.8); PLATELET COUNT 283 K/MM3 (134-434); RBC 3.39 M/mm3 (3.60-5.2); RDW 15.6 % (11.6-15.6)
[2017-07-11] MEDS: FOLIC ACID 1 MG TABLET (FP) PO SCH (09:35)
[2017-07-11] MEDS: FERROUS SO4 325 MG TABLET (FP) PO SCH (09:35)
[2017-07-11] MEDS: BACITRACIN 15 GM TUBE TOPICAL OINTMENT TP SCH ×2 (09:36→22:10)
[2017-07-11] MEDS: BUDESONIDE/FORMETEROL FUMARATE 160/4.5 mcg INHALER IH SCH (09:41)
[2017-07-11 09:49] LABS: ALK PHOS 85 U/L (45-117); ANION GAP 5 (8-16); BILIRUBIN,TOTAL 0.5 mg/dL (0.2-1.0); BLOOD UREA NITROGEN 7 mg/dL (7-18); CALCIUM 8.2 mg/dL (8.5-10.1); CHLORIDE 102 mmol/L (98-107); CO2 32 mmol/L (21-32); CREATININE 0.7 mg/dL (0.55-1.02); GLUCOSE,RANDOM 116 mg/dL (74-106); POTASSIUM 3.4 mmol/L (3.5-5.1); SGOT/AST 21 U/L (15-37); SGPT/ALT 37 U/L (12-78); SODIUM 139 mmol/L (136-145); TOT PROT 6.2 g/dl (6.4-8.2)
--- NOTE | 2017-07-11 10:09 | PN ---
Progress Note, Physician Chief Complaint: ID Fever to 101 noted but she feels fine offering no complaints No SOB chest pain chills or other complaints Yesterday we stopped her antibiotic Cefazolin Blood cultures sent today - Current Medication List Current Medications: Active Medications Acetaminophen (Tylenol -) 650 mg PO Q6H PRN PRN Reason: FEVER Last Admin: 07/11/17 01:21 Dose: 650 mg Acetaminophen (Tylenol -) 650 mg PO Q6HPO PRN PRN Reason: PAIN LEVEL 4 - 6 Albuterol Sulfate (Ventolin Hfa Inhaler -) 2 puff IH Q4H PRN PRN Reason: ASTHMA Albuterol Sulfate (Ventolin Hfa Inhaler -) 1 puff IH Q4H PRN PRN Reason: ASTHMA Albuterol/Ipratropium (Duoneb -) 1 amp NEB RQID [facility] Last Admin: 07/11/17 07:44 Dose: 1 amp Bacitracin (Bacitracin -) 1 applic TP BID [facility] Last Admin: 07/11/17 09:36 Dose: 1 applic Budesonide/Formoterol Fumarate (Symbicort 160/4.5mcg -) 2 puff IH DAILY [facility] Last Admin: 07/11/17 09:41 Dose: 2 puff Diphenhydramine HCl (Benadryl Injection -) 12.5 mg IVPUSH ONCE PRN PRN Reason: FOR ITCHING Last Admin: 07/08/17 23:07 Dose: 12.5 mg Diphenhydramine HCl (Benadryl -) 25 mg PO Q6H PRN PRN Reason: FOR ITCHING Last Admin: 07/09/17 22:44 Dose: 25 mg Ferrous Sulfate (Feosol -) 325 mg PO DAILY [facility] Last Admin: 07/11/17 09:35 Dose: 325 mg Folic Acid (Folic Acid -) 1 mg PO DAILY [facility] Last Admin: 07/11/17 09:35 Dose: 1 mg Heparin Sodium (Porcine) (Heparin -) 5,000 unit SQ TID [facility] Last Admin: 07/11/17 06:24 Dose: 5,000 unit Levothyroxine Sodium (Synthroid -) 88 mcg PO DAILY@0700 [facility] Last Admin: 07/11/17 06:16 Dose: 88 mcg Liraglutide (Victoza -) 1.8 mg SQ DAILY@0700 [facility] Last Admin: 07/11/17 06:21 Dose: Not Given Metformin HCl (Glucophage -) 500 mg PO BIDAC [facility] Last Admin: 07/11/17 06:16 Dose: 500 mg Ondansetron HCl (Zofran Injection) 4 mg IVPUSH Q6H PRN PRN Reason: NAUSEA AND/OR VOMITING Last Admin: 07/09/17 12:18 Dose: 4 mg Promethazine HCl (Phenergan Injection -) 12.5 mg IVPB Q6H PRN PRN Reason: NAUSEA AND/OR VOMITING Last Admin: 07/09/17 06:03 Dose: 12.5 mg Rosuvastatin Calcium (Crestor -) 5 mg PO HS [facility] Last Admin: 07/10/17 21:50 Dose: 5 mg Tramadol HCl (Ultram -) 50 mg PO Q8H PRN PRN Reason: PAIN LEVEL 7 - 10 Last Admin: 07/10/17 22:33 Dose: 50 mg - Objective Vital Signs: Vital Signs Temperature 99.7 F H 07/11/17 06:00 Pulse Rate 81 07/11/17 06:00 Respiratory Rate 18 07/11/17 06:00 Blood Pressure 126/47 07/11/17 06:00 O2 Sat by Pulse Oximetry (%) 91 L 07/10/17 21:00 Constitutional: Yes: Well Nourished, No Distress Eyes: Yes: WNL, Conjunctiva Clear HENT: Yes: WNL, Atraumatic Neck: Yes: WNL, Supple Cardiovascular: Yes: Regular Rate and Rhythm, S1, S2. No: Murmur Respiratory: Yes: WNL, Regular, CTA Bilaterally. No: Rales, Rhonchi Gastrointestinal: Yes: WNL, Normal Bowel Sounds, Soft. No: Rectal Bleeding, Splenomegaly, Tenderness Extremities: Yes: Other (Surgical wound celan marycarmen no pus redness) Edema: No Labs: CBC, BMP 07/11/17 09:00 07/11/17 09:00 Problem List - Problems (1) Status post laminectomy with spinal fusion Code(s): Z98.1 - ARTHRODESIS STATUS (2) Postoperative fever Code(s): R50.82 - POSTPROCEDURAL FEVER (3) Leukocytosis Code(s): D72.829 - ELEVATED WHITE BLOOD CELL COUNT, UNSPECIFIED Assessment/Plan Microbiology Laboratory Tests 07/11/17 07/11/17 09:00 09:00 WBC 16.0 H Hgb 9.1 L D Hct 27.7 L D Plt Count 283 D BUN 7 Creatinine 0.7 Assessment S/P lumbar extensive surgery with hardware removal and replacement Post op fever with no source apparent She looks well and her WBC elevated but this is chronic according to patient and has been seen by Dr Brooks Plan She want to go home today. Given the extensive spinal surgery I do not feel this is an optimal discharge though admittedly I do not want to treat her with any antibiotics at this time Isra ALMENDAREZ
[2017-07-11] MEDS ORDERED: POTASSIUM CHLORIDE TABS 10 MEQ TABLET.ER (FP) PO ONE (10:36)
--- NOTE | 2017-07-11 10:36 | PN ---
Progress Note (short form) - Note Progress Note: PULMONARY DRESSED AND WANTS TO GO HOME DENIES SOB/COUGH/WHEEZE VSS/FEBRILE ANICTERIC CHEST CLEAR S1S2 BS+ NO EDEMA LABS/MEDS/NOTES/IMAGES REVIEWED IMP ASTHMA STABLE FEVER S/P LUMBAR FUSION AND HARDWARE REMOVAL HTN HLD HYPOTHYROID ANEMIA SMOKER PLAN CONTINUE SYMBICORT INHALED BRONCHODILATORS PRN DVT PROPHYLAXIS ANALGESICS INCENTIVE SPIROMETER PFTS OUTPATIENT SMOKING CESSATION COUNSELED CHEST CT OUTPATIENT MONITOR H+H WOULD PREFER INPATIENT WORKUP FOR POST-OP FEVER BLOOD CULTURES PENDING/DISCUSSED WITH FRANCIE SMITH MD
[2017-07-11] MEDS: traMADol HCL 50 MG TABLET PO PRN ×2 (14:07→22:06)
[2017-07-11] MEDS: ROSUVASTATIN CA 10 MG TABLET (FP) PO SCH (21:31)
[2017-07-12] MEDS: HEPARIN NA (PORCINE) 5,000 UNITS/ML 1ML VIAL SQ SCH (05:49)
[2017-07-12] MEDS: metFORMIN HCL 500 MG TABLET (FP) PO SCH (06:08)
[2017-07-12] MEDS: LEVOTHYROXINE NA 88 MCG TABLET (FP) PO SCH (06:08)
[2017-07-12] MEDS: LIRAGLUTIDE 0.6 MG/0.1 ML PEN.INJCTR SQ SCH (06:10)
[2017-07-12] MEDS: ALBUTEROL SO4 2.5/IPRATROPIUM 0.5 INH SOL 3 ML VIAL.NEB. NEB SCH ×2 (07:37→11:33)
--- NOTE | 2017-07-12 08:32 | DS ---
Physical Examination Vital Signs: Vital Signs Temperature 98 F 07/12/17 06:47 Pulse Rate 71 07/12/17 06:47 Respiratory Rate 18 07/12/17 06:47 Blood Pressure 110/74 07/12/17 06:47 O2 Sat by Pulse Oximetry (%) 96 07/11/17 21:00 Cardiovascular: Yes: S1, S2 Respiratory: Yes: Regular, CTA Bilaterally Gastrointestinal: Yes: Normal Bowel Sounds, Soft Wound/Incision: No: Draining Discharge Summary Reason For Visit: LUMBAR STENOSIS AND INSTABILITY Current Active Problems Acute anemia (Acute) Asthma (Acute) COPD (chronic obstructive pulmonary disease) (Acute) Fever (Acute) Hypothyroid (Acute) Post-laminectomy syndrome (Acute) Postoperative fever (Acute) Status post laminectomy with spinal fusion (Acute) Tobacco abuse (Acute) Tobacco abuse (Acute) Tobacco abuse counseling (Acute) Tobacco abuse counseling (Acute) Hospital Course: - Problems (1) Post-laminectomy syndrome Assessment/Plan: - PER NS -PAIN CONTROL Code(s): M96.1 - POSTLAMINECTOMY SYNDROME, NOT ELSEWHERE CLASSIFIED (2) Diabetes Assessment/Plan: -BGM -SAME MEDS Code(s): E11.9 - TYPE 2 DIABETES MELLITUS WITHOUT COMPLICATIONS Qualifiers: Diabetes mellitus type: type 2 Diabetes mellitus complication status: without complication (3) Hypothyroid Assessment/Plan: -SYNTHROID Code(s): E03.9 - HYPOTHYROIDISM, UNSPECIFIED (4) Leukocytosis Assessment/Plan: -CHRONIC -MONITOR Code(s): D72.829 - ELEVATED WHITE BLOOD CELL COUNT, UNSPECIFIED (5) COPD (chronic obstructive pulmonary disease) Assessment/Plan: -NEBS -PULM Code(s): J44.9 - CHRONIC OBSTRUCTIVE PULMONARY DISEASE, UNSPECIFIED (6) Fever Assessment/Plan: BC CBCD ID FOLLOW UP Code(s): R50.9 - FEVER, UNSPECIFIED (7) Acute anemia Assessment/Plan: S/P PRBC FOLLOW CBC Code(s): D64.9 - ANEMIA, UNSPECIFIED Condition: Good - Instructions Diet, Activity, Other Instructions: Dr. Garcia's Discharge Instructions Dear KORTNEY GONZALEZ, Post Operative Instructions Physical activity Resume your normal everyday activity as tolerated no heavy lifting or exercise until seen by your surgeon. You may walk unlimited amounts of and climb stairs. You may resume driving the car when you are no longer wearing your brace and feel safe and comfortable behind the wheel. Do not operate a vehicle while taking narcotic medication. Brace: Wear your brace at all times when out of bed, only remove to sleep and shower. Wound care keep incision dry for 48 - 72 hours. You may shower 2 days after surgery but do not submerge the incision or apply ointments or lotions. The marycarmen will be removed by your surgeon in the office @ 10-14 days Diet There are no dietary restrictions. Eat healthy, high-fiber foods. Drink 6 to 8 glasses of liquid each day. This will assist in keeping your bowels are regular. Pain management You may take Tylenol or acetaminophen. Any pain prescription medication ordered should be taken as prescribed for moderate to severe pain. Call Dr. Garcia for any of the following: Severe pain not relieved by medication Fever of 101 or higher Excessive bleeding or drainage on dressing Inability to urinate If you experience shortness or breath or chest pain seek emergency treatment immediately. Call the office to confirm for a post operative appointment for 7-10 days after your surgery Referrals: Xiomara Perez MD [Staff Physician] - 07/14/17 Rich Garcia MD, FAANS [Staff Physician] - 1 Week - Home Medications Comprehensive Discharge Medication List: Ambulatory Orders Levothyroxine [Synthroid -] 88 mcg PO DAILY 06/18/14 metFORMIN HCL [Glucophage] 500 mg PO BID 06/18/14 Albuterol Sulfate Inhaler - [Ventolin HFA Inhaler -] 1 - 2 inh PO PRN PRN Ascorbic Acid [Vitamin C] 500 mg PO BID 07/06/17 Budesonide/Formeterol Fumarate [SYMBICORT 160/4.5mcg -] 2 inh IH DAILY 07/06/17 Ferrous Sulfate 325 mg PO BID 07/06/17 Folic Acid 1 mg PO DAILY 07/06/17 Rosuvastatin [Crestor -] 5 mg PO HS 07/06/17 Bacitracin - [Bacitracin Topical Ointment -] 1 applic TP BID tube 07/12/17
[2017-07-12 08:49] LABS: CALCIUM 8.4 mg/dL (8.5-10.1); CHLORIDE 102 mmol/L (98-107); POTASSIUM 4.2 mmol/L (3.5-5.1); SODIUM 139 mmol/L (136-145)
[2017-07-12 08:53] LABS: BASO % 0.7 % (0-2.0); HEMATOCRIT 25.5 % (32.4-45.2); HEMOGLOBIN 8.2 GM/dL (10.7-15.3); LYMPH % 15.3 % (8-40); MCH 26.5 pg (25.7-33.7); MCHC 32.3 g/dl (32.0-36.0); MEAN PLT VOLUME 7.9 fl (7.5-11.1); MONO % 8.4 % (3.8-10.2); NEUT % 70.6 % (42.8-82.8); PLATELET COUNT 341 K/MM3 (134-434); RBC 3.11 M/mm3 (3.60-5.2); RDW 15.8 % (11.6-15.6); WHITE BLOOD COUNT 14.7 K/mm3 (4.0-10.0)
--- NOTE | 2017-07-12 09:43 | PN ---
Progress Note, Physician Chief Complaint: ID Feels and looks well Temps down - Current Medication List Current Medications: Active Medications Acetaminophen (Tylenol -) 650 mg PO Q6H PRN PRN Reason: FEVER Last Admin: 07/11/17 22:09 Dose: 650 mg Acetaminophen (Tylenol -) 650 mg PO Q6HPO PRN PRN Reason: PAIN LEVEL 4 - 6 Last Admin: 07/11/17 14:07 Dose: 650 mg Albuterol Sulfate (Ventolin Hfa Inhaler -) 2 puff IH Q4H PRN PRN Reason: ASTHMA Albuterol Sulfate (Ventolin Hfa Inhaler -) 1 puff IH Q4H PRN PRN Reason: ASTHMA Albuterol/Ipratropium (Duoneb -) 1 amp NEB RQID [facility] Last Admin: 07/12/17 07:37 Dose: Not Given Bacitracin (Bacitracin -) 1 applic TP BID [facility] Last Admin: 07/11/17 22:10 Dose: Not Given Budesonide/Formoterol Fumarate (Symbicort 160/4.5mcg -) 2 puff IH DAILY [facility] Last Admin: 07/11/17 09:41 Dose: 2 puff Diphenhydramine HCl (Benadryl Injection -) 12.5 mg IVPUSH ONCE PRN PRN Reason: FOR ITCHING Last Admin: 07/08/17 23:07 Dose: 12.5 mg Diphenhydramine HCl (Benadryl -) 25 mg PO Q6H PRN PRN Reason: FOR ITCHING Last Admin: 07/09/17 22:44 Dose: 25 mg Ferrous Sulfate (Feosol -) 325 mg PO DAILY [facility] Last Admin: 07/11/17 09:35 Dose: 325 mg Folic Acid (Folic Acid -) 1 mg PO DAILY [facility] Last Admin: 07/11/17 09:35 Dose: 1 mg Heparin Sodium (Porcine) (Heparin -) 5,000 unit SQ TID [facility] Last Admin: 07/12/17 05:49 Dose: 5,000 unit Levothyroxine Sodium (Synthroid -) 88 mcg PO DAILY@0700 [facility] Last Admin: 07/12/17 06:08 Dose: 88 mcg Liraglutide (Victoza -) 1.8 mg SQ DAILY@0700 [facility] Last Admin: 07/12/17 06:10 Dose: Not Given Metformin HCl (Glucophage -) 500 mg PO BIDAC [facility] Last Admin: 07/12/17 06:08 Dose: 500 mg Ondansetron HCl (Zofran Injection) 4 mg IVPUSH Q6H PRN PRN Reason: NAUSEA AND/OR VOMITING Last Admin: 07/09/17 12:18 Dose: 4 mg Promethazine HCl (Phenergan Injection -) 12.5 mg IVPB Q6H PRN PRN Reason: NAUSEA AND/OR VOMITING Last Admin: 07/09/17 06:03 Dose: 12.5 mg Rosuvastatin Calcium (Crestor -) 5 mg PO HS [facility] Last Admin: 07/11/17 21:31 Dose: 5 mg Tramadol HCl (Ultram -) 50 mg PO Q8H PRN PRN Reason: PAIN LEVEL 7 - 10 Last Admin: 07/11/17 22:06 Dose: 50 mg - Objective Vital Signs: Vital Signs Temperature 98 F 07/12/17 06:47 Pulse Rate 71 07/12/17 06:47 Respiratory Rate 18 07/12/17 06:47 Blood Pressure 110/74 07/12/17 06:47 O2 Sat by Pulse Oximetry (%) 96 07/11/17 21:00 Constitutional: Yes: No Distress Cardiovascular: Yes: S1, S2 Respiratory: Yes: WNL, Regular, CTA Bilaterally Gastrointestinal: Yes: Soft. No: Tenderness, Tenderness, Rebound Labs: CBC, BMP 07/12/17 07:30 07/12/17 07:30 Problem List - Problems (1) Status post laminectomy with spinal fusion Code(s): Z98.1 - ARTHRODESIS STATUS (2) Postoperative fever Code(s): R50.82 - POSTPROCEDURAL FEVER (3) Leukocytosis Code(s): D72.829 - ELEVATED WHITE BLOOD CELL COUNT, UNSPECIFIED Assessment/Plan Laboratory Tests 07/12/17 07/12/17 07:30 07:30 WBC 14.7 H Hgb 8.2 L Hct 25.5 L Plt Count 341 D Creatinine Pending Creat Clearance w eGFR Pending Assessment Post op spinal surgery 07/07 doing well No concerns today Plan Discharge planning from ID standpoint seems fine with out pt plan to see surgery Isra ALMENDAREZ
[2017-07-12 09:57] LABS: ALBUMIN 2.8 g/dl (3.4-5.0); ALK PHOS 76 U/L (45-117); BLOOD UREA NITROGEN 9 mg/dL (7-18); SGOT/AST 16 U/L (15-37); SGPT/ALT 28 U/L (12-78)
[2017-07-12 10:08] LABS: ANION GAP 6 (8-16); BILIRUBIN,TOTAL 0.3 mg/dL (0.2-1.0); CO2 31 mmol/L (21-32); CREATININE 0.6 mg/dL (0.55-1.02); GLUCOSE,RANDOM 92 mg/dL (74-106)
[2017-07-12] MEDS ORDERED: PT OWN MED DRAWER 7, Y5N ONE (10:25)
[2017-07-12] MEDS: FOLIC ACID 1 MG TABLET (FP) PO SCH (10:27)
[2017-07-12] MEDS: FERROUS SO4 325 MG TABLET (FP) PO SCH (10:27)
[2017-07-12] MEDS: BUDESONIDE/FORMETEROL FUMARATE 160/4.5 mcg INHALER IH SCH (10:27)
[2017-07-12] MEDS: BACITRACIN 15 GM TUBE TOPICAL OINTMENT TP SCH (10:28)
[2017-07-12 12:32] VITALS: BP 125/79; PULSE 84; TEMP 98.1
== END 2017-07-12 12:05 | disposition home or self-care (01) | DRG 460 ==
LOC: JSAMEDAYSX 05:07 → EDSTATUS 08:00 → J8W 18:00
PROVIDERS: ADMIT Family Medicine; ATTEND Family Medicine
PROC: 01NB0ZZ Release Lumbar Nerve, Open Approach (ICD-10-PCS; 2017-07-07)
PROC: 0SP00AZ Removal of Interbody Fusion Device from Lumbar Vertebral Joint, Open Approach (ICD-10-PCS; 2017-07-07)
PROC: 0SB20ZZ Excision of Lumbar Vertebral Disc, Open Approach (ICD-10-PCS; 2017-07-07)
PROC: 0JX70ZB Transfer Back Subcutaneous Tissue and Fascia with Skin and Subcutaneous Tissue, Open Approach (ICD-10-PCS; 2017-07-07)
PROC: 0SG1071 Fusion of 2 or more Lumbar Vertebral Joints with Autologous Tissue Substitute, Posterior Approach, Posterior Column, Open Approach (ICD-10-PCS; principal; 2017-07-07 08:00)
PROC: 30233N1 Transfusion of Nonautologous Red Blood Cells into Peripheral Vein, Percutaneous Approach (ICD-10-PCS; 2017-07-10)
DX: M48.061 Spinal stenosis, lumbar region without neurogenic claudication (principal); J44.9 Chronic obstructive pulmonary disease, unspecified; D72.89 Other specified disorders of white blood cells; R50.82 Postprocedural fever; D72.829 Elevated white blood cell count, unspecified; E03.9 Hypothyroidism, unspecified; D64.9 Anemia, unspecified; J45.909 Unspecified asthma, uncomplicated; M96.1 Postlaminectomy syndrome, not elsewhere classified; E11.9 Type 2 diabetes mellitus without complications; E78.5 Hyperlipidemia, unspecified; F17.210 Nicotine dependence, cigarettes, uncomplicated; I10 Essential (primary) hypertension
CPT/HCPCS: 36415; 36430; 71045-TC-FY; 72131-TC; 76000-TC-FY; 80048; 80053; 82607; 82728; 82962; 83036; 83540; 83550; 84443; 85025; 85027; 85651; 86140; 86850; 86900; 86901; 86922; 87040; 94010; 94640; 94760; 97116-GP; 97161-GP; J0131; J1644; J7620; P9038; P9058

== ENCOUNTER 2017-07-22 14:25 | Emergency (ER) | payer OTHER ==
--- NOTE | 2017-07-22 14:36 | PDOC ---
Rapid Medical Evaluation Time Seen by Provider: 07/22/17 14:31 Medical Evaluation: Allergies Allergy/AdvReac Type Severity Reaction Status Date / Time No Known Allergies Allergy Verified 07/22/17 14:31 07/22/17 14:31 I have performed a brief in-person evaluation of the patient. The patient presents with a chief complaint of : sent by pmd due to emergency room due to wbc results of 20.2 Patient reports s/p lumbar spine surgery 14 days ago. Pertinent physical exam findings. has back brace in place red bruising noted to right upper arm I have ordered the following labs ordered This patient will proceed to the ED for further evaluation. Discharge Disposition - Referrals Referrals: Xiomara Perez MD [Primary Care Provider] - - Patient Instructions - Post Discharge Activity
[2017-07-22 14:40] VITALS: TEMP 98.5; BMI 29.9
[2017-07-22 15:18] LABS: BASO % 1.1 % (0-2.0); EOS % 4.1 % (0-4.5); HEMATOCRIT 26.4 % (32.4-45.2); HEMOGLOBIN 8.6 GM/dL (10.7-15.3); LYMPH % 18.8 % (8-40); MCH 27.2 pg (25.7-33.7); MCHC 32.6 g/dl (32.0-36.0); MEAN CELL VOLUME 83.3 fl (80-96); MEAN PLT VOLUME 6.8 fl (7.5-11.1); MONO % 5.8 % (3.8-10.2); NEUT % 70.2 % (42.8-82.8); PLATELET COUNT 599 K/MM3 (134-434); RBC 3.17 M/mm3 (3.60-5.2); RDW 17.3 % (11.6-15.6)
[2017-07-22 15:22] LABS: INR 1.02 (0.82-1.09); PROTHROMBIN TIME (PATIENT) 11.5 SEC (9.7-13.0)
[2017-07-22 15:25] LABS: ACTIVATED PTT 42.5 SECONDS (26.9-34.4)
--- NOTE | 2017-07-22 15:40 | PDOC ---
History of Present Illness <Courtney Seth - Last Filed: 07/22/17 16:09> - General History Source: Patient Exam Limitations: No Limitations - History of Present Illness Initial Comments: 07/22/17 15:34 The patient is a 52F with a PMH of asthma and chronic back pain who presents to the ER sent by her PCP for an increased WBC count. The patient states that she had lumbar surgery at our facility. She was at her PCP's office and was found to have a WBC of 20. She denies any fever, chills, nausea, vomiting, dysuria, hematuria, CP, SOB. <Clayton Summers - Last Filed: 07/22/17 18:08> - General Chief Complaint: Revisit, Lab Variance Stated Complaint: SENT BY PCP Time Seen by Provider: 07/22/17 14:31 Past History <Courtney Seth - Last Filed: 07/22/17 16:09> - Past Medical History Anemia: Yes Asthma: Yes ("never had an attack") Cancer: No Cardiac Disorders: No CVA: No COPD: No CHF: No Dementia: No Diabetes: No GI Disorders: Yes ("reflux"-never diagnosised) Disorders: No HTN: No Hypercholesterolemia: Yes Seizures: No Thyroid Disease: Yes (hypothyroid) - Surgical History Abdominal Surgery: Yes (adhesions removed) Cholecystectomy: Yes Neurologic Surgery: Yes (spinal LUMBAR 14 DAYS AGO) Orthopedic Surgery: Yes (left knee sx,left carpal tunnel, left rotator cuff) - Suicide/Smoking/Psychosocial Hx Smoking History: Current some day smoker Have you smoked in the past 12 months: Yes Number of Cigarettes Smoked Daily: 3 Information on smoking cessation initiated: No 'Breaking Loose' booklet given: 07/07/17 Hx Alcohol Use: No Drug/Substance Use Hx: No Substance Use Type: None Hx Substance Use Treatment: No <Clayton Summers - Last Filed: 07/22/17 18:08> - Past Medical History Allergies/Adverse Reactions: Allergies Allergy/AdvReac Type Severity Reaction Status Date / Time No Known Allergies Allergy Verified 07/22/17 14:31 Home Medications: Ambulatory Orders Levothyroxine [Synthroid -] 88 mcg PO DAILY 06/18/14 metFORMIN HCL [Glucophage] 500 mg PO BID 06/18/14 Albuterol Sulfate Inhaler - [Ventolin HFA Inhaler -] 1 - 2 inh PO PRN PRN Ascorbic Acid [Vitamin C] 500 mg PO BID 07/06/17 Budesonide/Formeterol Fumarate [SYMBICORT 160/4.5mcg -] 2 inh IH DAILY 07/06/17 Ferrous Sulfate 325 mg PO BID 07/06/17 Folic Acid 1 mg PO DAILY 07/06/17 Rosuvastatin [Crestor -] 5 mg PO HS 07/06/17 Enoxaparin [Lovenox -] 70 mg SQ BID 07/22/17 Review of Systems - Review of Systems Able to Perform ROS?: Yes Comments:: 07/22/17 16:19 GENERAL/CONSTITUTIONAL: No fever or chills. No weakness. HEAD, EYES, EARS, NOSE AND THROAT: No change in vision. No ear pain or discharge. No sore throat. CARDIOVASCULAR: No chest pain, palpitations, or lightheadedness. RESPIRATORY: No cough, wheezing, shortness of breath, or hemoptysis. GASTROINTESTINAL: No nausea, vomiting, diarrhea, constipation, or abdominal pain. GENITOURINARY: No dysuria, frequency, hematuria, or change in urination. MUSCULOSKELETAL: Positive for post-op back pain. No joint or muscle swelling or pain. No neck pain. SKIN: No rash or lesions. NEUROLOGIC: No headache, numbness, tingling, weakness, loss of consciousness, or change in strength/sensation. ENDOCRINE: No increased thirst. No abnormal weight change. HEMATOLOGIC/LYMPHATIC: No anemia, easy bleeding, or history of blood clots. ALLERGIC/IMMUNOLOGIC: No hives or skin allergy. Is the patient limited [place] proficient: No <Clayton Summers - Last Filed: 07/22/17 18:08> *Physical Exam - Vital Signs Last Vital Signs Temp Pulse Resp BP Pulse Ox 98.5 F 73 20 107/73 98 07/22/17 14:32 07/22/17 14:32 07/22/17 15:36 07/22/17 14:32 07/22/17 15:36 <Courtney Seth - Last Filed: 07/22/17 16:09> - Vital Signs Last Vital Signs Temp Pulse Resp BP Pulse Ox 98.5 F 73 20 107/73 98 07/22/17 14:32 07/22/17 14:32 07/22/17 14:32 07/22/17 14:32 07/22/17 14:32 - Physical Exam Comments: 07/22/17 16:19 GENERAL: Well developed, well nourished. Awake and alert. No acute distress. HEENT: Normocephalic, atraumatic. Hearing grossly normal. Moist mucous membranes. PERRLA, EOMI. No conjunctival pallor. Sclera are non-icteric. NECK: Supple. Full ROM. CARDIOVASCULAR: Regular rate and rhythm. No murmurs, rubs, or gallops. PULMONARY: No evidence of respiratory distress. Lungs clear to auscultation bilaterally. No wheezing, rales or rhonchi. ABDOMINAL: Soft. Non-tender. Non-distended. No rebound or guarding. MUSCULOSKELETAL: Well-healing incision present on L spine. Normal range of motion at all joints. No bony deformities or tenderness. EXTREMITIES: No cyanosis. No clubbing. No edema. No calf tenderness or swelling. SKIN: Warm and dry. Normal capillary refill. No rashes. No jaundice. NEUROLOGICAL: Alert, awake, appropriate. Cranial nerves 2-12 intact. Normal speech. Gait is normal without ataxia. PSYCHIATRIC: Cooperative. Good eye contact. Appropriate mood and affect. <Clayton Summers - Last Filed: 07/22/17 18:08> ED Treatment Course - LABORATORY CBC & Chemistry Diagram: 07/22/17 14:59 07/22/17 14:59 - ADDITIONAL ORDERS Additional order review: Laboratory Results 07/22/17 07/22/17 14:59 14:59 PT with INR 11.50 INR 1.02 PTT (Actin FS) 42.5 H Sodium 140 Potassium 4.0 Chloride 104 Carbon Dioxide 29 Anion Gap 7 L BUN 7 Creatinine 0.6 Creat Clearance w eGFR > 60 Random Glucose 90 Calcium 8.8 Total Bilirubin 0.3 AST 17 ALT 27 Alkaline Phosphatase 79 Total Protein 6.8 Albumin 3.6 07/22/17 14:59 RBC 3.17 L MCV 83.3 MCHC 32.6 RDW 17.3 H MPV 6.8 L D Neutrophils % 70.2 Lymphocytes % 18.8 D Monocytes % 5.8 Eosinophils % 4.1 Basophils % 1.1 <Courtney Seth - Last Filed: 07/22/17 16:09> - LABORATORY CBC & Chemistry Diagram: 07/22/17 14:59 07/22/17 14:59 - ADDITIONAL ORDERS Additional order review: 07/22/17 14:59 RBC 3.17 L MCV 83.3 MCHC 32.6 RDW 17.3 H MPV 6.8 L D Neutrophils % 70.2 Lymphocytes % 18.8 D Monocytes % 5.8 Eosinophils % 4.1 Basophils % 1.1 <Clayton Summers - Last Filed: 07/22/17 18:08> Medical Decision Making - Medical Decision Making 07/22/17 16:10 Dr. Perez was paged and notified via phone service. <Courtney Seth - Last Filed: 07/22/17 16:09> - Medical Decision Making 07/22/17 16:17 The patient is a 52F with a PMH of chronic back pain who presents 14 days s/p lumbar surgery. She was sent by her PCP, Dr. Perez, for an elevated WBC of 20. She states she has chronically elevated WBC. WBC in our facility is 17.0. JASON Platt at Dr. Perez's office agrees to d/c pt if UA and CXR are negative. Pt is afebrile and fells very well otherwise. Pending UA and CXR. 07/22/17 17:23 CXR negative on preliminary read. UA negative. 07/22/17 17:56 Pt reports that her R upper arm has been hurting her. On exam, I noted it was slightly warm to touch and swollen. Order placed for duplex. 07/22/17 18:05 I have discussed the pt with Dr. Garcia who saw the patient earlier today and does not believe her white count is from her spinal surgery. He recommends f/u with heme/onc to further investigate her chronic high WBC. 07/22/17 18:07 R arm negative for DVT. Will d/c home with PCP f/u. <Clayton Summers - Last Filed: 07/22/17 18:08> *DC/Admit/Observation/Transfer <Courtney Seth - Last Filed: 07/22/17 16:09> - Discharge Dispostion Decision to Admit order: No <Clayton Summers - Last Filed: 07/22/17 18:08> Diagnosis at time of Disposition: Leukocytosis Qualifiers: Leukocytosis type: unspecified Qualified Code(s): D72.829 - Elevated white blood cell count, unspecified - Discharge Dispostion Disposition: HOME Condition at time of disposition: Stable - Referrals Referrals: Xiomara Perez MD [Primary Care Provider] - - Patient Instructions Printed Discharge Instructions: White Blood Cell Count, With Differential Additional Instructions: Please follow up with your primary care physician in 2-3 days. You might need follow up with hematology/oncology for your increased white blood cell count. Please return to the ER if you have any signs or symptoms of chest pain, shortness of breath, uncontrollable fever, chills, nausea, vomiting, numbness, tingling, or weakness in any part of your body, changes in vision, or slurred speech. Please return to the ER if symptoms persist, worsen, or new symptoms arise. - Post Discharge Activity
[2017-07-22 15:45] LABS: ALBUMIN 3.6 g/dl (3.4-5.0); ALK PHOS 79 U/L (45-117); ANION GAP 7 (8-16); BILIRUBIN,TOTAL 0.3 mg/dL (0.2-1.0); BLOOD UREA NITROGEN 7 mg/dL (7-18); CALCIUM 8.8 mg/dL (8.5-10.1); CHLORIDE 104 mmol/L (98-107); CO2 29 mmol/L (21-32); CREATININE 0.6 mg/dL (0.55-1.02); GLUCOSE,RANDOM 90 mg/dL (74-106); SGOT/AST 17 U/L (15-37); SGPT/ALT 27 U/L (12-78); SODIUM 140 mmol/L (136-145); TOT PROT 6.8 g/dl (6.4-8.2)
[2017-07-22 16:07] LABS: URINE APPEARANCE CLEAR; URINE BILIRUBIN NEGATIVE (<2.0 mg/dL); URINE COLOR STRAW; URINE GLUCOSE (UA) NEGATIVE (NEGATIVE); URINE KETONE NEGATIVE (NEGATIVE); URINE LEUK ESTERASE NEGATIVE (NEGATIVE); URINE NITRITE NEGATIVE (NEGATIVE); URINE PROTEIN NEGATIVE (NEGATIVE); URINE UROBILINOGEN NEGATIVE mg/dL (0.2-1.0)
--- NOTE | 2017-07-22 17:27 | PDOC ---
Attending Attestation - HPI HPI: 07/22/17 17:40 The patient is a 52-year-old female, with a significant past medical history of asthma and chronic back pain, who was sent in by her PCP (Dr. Perez) with an increased white blood cell count. Patient is s/p lumbar spine surgery 14 days ago performed by Dr. Garcia. The patient was having blood work performed at her PCPs office when her WBC was noted to be 20. <Courtney Seth - Last Filed: 07/22/17 17:40> - Resident Resident Name: Clayton Summers - ED Attending Attestation I have performed the following: I have examined & evaluated the patient, The case was reviewed & discussed with the resident, I agree w/resident's findings & plan, Exceptions are as noted - Physicial Exam PE: 07/22/17 17:41 awake alert lungs clear bilaterally heart rrr no mrg. abd soft nt nd. incision cdi no erythema no drainage. ext wwp no edema. - Medical Decision Making 07/22/17 17:41 elevated wbc following surgery per pcp. pt with no sxs of infection. afebrile. no cough. no urinary complaints. plan ua labs cxr. will d/w pt surgeon and primary doctor. pt labs unremarkable. ua negative. cxr negative. asxs. will dc home followup outpt with surgeon as currently scheduled. no signs of wound infection on exam. <Jeannette Noel - Last Filed: 08/14/17 09:08> Attestations - Attestations 07/22/17 17:41 Documentation prepared by Courtney Seth, acting as medical affairs manager for Jeannette Noel MD. <Courtney Seth - Last Filed: 07/22/17 17:40>
[2017-07-22 18:19] VITALS: BP 107/75; PULSE 71
== END 2017-07-22 18:37 | disposition home or self-care (01) ==
LOC: JER 14:25
DX: D72.829 Elevated white blood cell count, unspecified (principal); G89.29 Other chronic pain; K21.9 Gastro-esophageal reflux disease without esophagitis; J45.909 Unspecified asthma, uncomplicated; E03.9 Hypothyroidism, unspecified
CPT/HCPCS: 36415; 71046-TC-FY; 80053; 81003; 85025; 85610; 85730; 87040; 87086; 93971; 99283-25

== ENCOUNTER 2017-12-15 17:29 | Emergency (ER) | payer OTHER ==
[2017-12-15 18:03] VITALS: BP 108/60; PULSE 99; TEMP 99.1; BMI 28.7
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
[2017-12-15] MEDS ORDERED: CYCLOBENZAPRINE HCL 10 MG TABLET (FP) PO ONE (18:56)
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
[2017-12-15] MEDS ORDERED: CYCLOBENZAPRINE HCL 10 MG TABLET (FP) ONE (19:05)
== END 2017-12-15 19:13 | disposition home or self-care (01) ==
LOC: JERFT 17:29
DX: S13.4XXA Sprain of ligaments of cervical spine, initial encounter (principal); S39.012A Strain of muscle, fascia and tendon of lower back, initial encounter; V43.52XA Car driver injured in collision with other type car in traffic accident, initial encounter; Y92.488 Other paved roadways as the place of occurrence of the external cause; Y93.89 Activity, other specified; Y99.8 Other external cause status; E03.9 Hypothyroidism, unspecified; Z87.09 Personal history of other diseases of the respiratory system; Z86.718 Personal history of other venous thrombosis and embolism; Z79.01 Long term (current) use of anticoagulants
CPT/HCPCS: 72050-TC-FY; 72100-TC-FY; 99281-25

== ENCOUNTER 2021-05-13 09:56 | Emergency (ER) | payer OTHER ==
[2021-05-13 10:15] VITALS: BP 110/72; PULSE 71; TEMP 98.2; BMI 29.0
[2021-05-13] MEDS ORDERED: NAPROXEN 500 MG TABLET PO ONE (10:53)
[2021-05-13] MEDS ORDERED: METHOCARBAMOL 500 MG TABLET PO ONE (10:53)
[2021-05-13] MEDS ORDERED: METHOCARBAMOL 500 MG TABLET ONE (11:18)
[2021-05-13] MEDS ORDERED: NAPROXEN 500 MG TABLET ONE (11:18)
== END 2021-05-13 11:21 | disposition home or self-care (01) ==
LOC: JERFT 09:56
DX: M54.2 Cervicalgia (principal); V49.40XA Driver injured in collision with unspecified motor vehicles in traffic accident, initial encounter
CPT/HCPCS: 99283-25

== ENCOUNTER 2021-07-03 10:27 | Day surgery (SDC) | payer OTHER ==
[2021-07-03] MEDS ORDERED: FERRIC CARBOXYMALTOSE 750 MG in SODIUM CHLORIDE 250 ML IVPB ONE (11:00)
[2021-07-03 11:02] VITALS: BP 106/56; PULSE 72; TEMP 98.2
== END 2021-07-03 11:57 | disposition home or self-care (01) ==
LOC: FINFUSION 10:27 → FM/S 10:29 → FINFUSION 11:57
PROVIDERS: ATTEND Family Medicine
PROC: 3E033GC Introduction of Other Therapeutic Substance into Peripheral Vein, Percutaneous Approach (ICD-10-PCS; principal; 2021-07-03)
DX: D50.9 Iron deficiency anemia, unspecified (principal)
CPT/HCPCS: 96365; J1439

== ENCOUNTER 2021-07-10 10:29 | Day surgery (SDC) | payer OTHER ==
[2021-07-10] MEDS ORDERED: FERRIC CARBOXYMALTOSE 750 MG in SODIUM CHLORIDE 250 ML IVPB ONE (11:15)
[2021-07-10 11:22] VITALS: BP 101/64; PULSE 68; TEMP 98
== END 2021-07-10 12:45 | disposition home or self-care (01) ==
LOC: FINFUSION 10:29 → FM/S 10:36 → FINFUSION 12:45
PROVIDERS: ATTEND Family Medicine
PROC: 3E033GC Introduction of Other Therapeutic Substance into Peripheral Vein, Percutaneous Approach (ICD-10-PCS; principal; 2021-07-10)
DX: D50.9 Iron deficiency anemia, unspecified (principal)
CPT/HCPCS: 96365; J1439

== ENCOUNTER → 2023-05-07 | Day surgery (SDC) | payer OTHER | END | disposition home or self-care (01) | LOC: FRADUS-SUR 13:54 | PROVIDERS: ATTEND Student in an Organized Health Care Education/Training Program | PROC: 0H9U3ZX Drainage of Left Breast, Percutaneous Approach, Diagnostic (ICD-10-PCS; principal; 2023-05-07) | DX: C50.912 Malignant neoplasm of unspecified site of left female breast (principal) | CPT/HCPCS: 19083; 77065-TC; 88305-TC; 88342-TC ==

== ENCOUNTER 2024-12-05 11:43 | Day surgery (SDC) | payer MEDICARE, OTHER ==
[2024-12-05] MEDS ORDERED: HYDROCORTISONE SOD SUCCINATE 100 MG/2 ML VIAL IVPB PRN (11:51)
[2024-12-05] MEDS: IRON SUCROSE INJECTION 200 MG in SODIUM CHLORIDE 100 ML IVPB ONE (12:04)
[2024-12-05 13:36] VITALS: BP 105/70; PULSE 80; RESP 18; TEMP 98.5
== END 2024-12-05 13:37 | disposition home or self-care (01) ==
LOC: FINFUSION 11:43 → FM/S 11:44 → FINFUSION 13:37
PROVIDERS: ATTEND Family Medicine
PROC: 3E033GC Introduction of Other Therapeutic Substance into Peripheral Vein, Percutaneous Approach (ICD-10-PCS; principal; 2024-12-05)
DX: D50.9 Iron deficiency anemia, unspecified (principal)
CPT/HCPCS: 96365; J1756